=== PATIENT | female | born 1970 | race Two or more races ===

== ENCOUNTER 2021-09-24 14:45 | Outpatient (REF) | payer OTHER, SELFPAY ==
--- NOTE | ~2021-09-24 | XR_ITS ---
EXAMINATION: XR CHEST CLINICAL INFORMATION: Asthma. COMPARISON: None TECHNIQUE: 2 views of the chest were obtained. FINDINGS: No significant abnormality is noted involving the heart, lungs, mediastinum, bony thorax or soft tissues. XR/XR chest 2V IMPRESSION: Unremarkable chest examination.
== END 2021-09-24 14:46 | disposition home or self-care (01) ==
LOC: HO.XRAY 14:45
PROVIDERS: PCP Nurse Practitioner Family; Visit Provider Hospitalist
DX: J45.40 Moderate persistent asthma, uncomplicated (principal); G47.33 Obstructive sleep apnea (adult) (pediatric); M54.9 Dorsalgia, unspecified; J30.9 Allergic rhinitis, unspecified; R06.00 Dyspnea, unspecified; Z99.89 Dependence on other enabling machines and devices
CPT/HCPCS: 71046

== ENCOUNTER 2021-11-12 15:08 | Outpatient (REF) | payer OTHER, SELFPAY ==
--- NOTE | 2021-11-12 16:43 | PFT_ITS ---
INDICATION: Asthma. SPIROMETRY: FEV1 to FVC of 84% with an FEV1 of 2.23 L, which is 74% predicted. FVC of 2.27 L, which is 72% predicted. No significant response to bronchodilators noted. Maximum voluntary ventilation 85% predicted. LUNG VOLUMES: Total lung capacity 86% predicted with an expiratory reserve volume of 9% predicted. DIFFUSION CAPACITY: DLCO 81% predicted. COMPARISONS: None. INTERPRETATION: No obstructive, nor restrictive ventilatory defects identified. No significant response to bronchodilators noted. Normal maximum voluntary ventilation. Lung volumes are normal except for decrease in the expiratory reserve volume secondary to elevated BMI. Diffusion capacity is within normal limits. Clinical correlation warranted. MD CHARLA Meza/MODSelam / [id number]
== END 2021-11-12 15:09 | disposition home or self-care (01) ==
LOC: HO.RESP 15:08
PROVIDERS: PCP Nurse Practitioner Family; Visit Provider Hospitalist
DX: J45.40 Moderate persistent asthma, uncomplicated (principal); R06.00 Dyspnea, unspecified
CPT/HCPCS: 94060; 94727; 94729

== ENCOUNTER → 2021-11-16 15:03 | Outpatient (BNVA) | payer OTHER, SELFPAY | PROVIDERS: PCP Nurse Practitioner Family; Visit Provider Hospitalist | DX: J45.909 Unspecified asthma, uncomplicated (principal); G47.33 Obstructive sleep apnea (adult) (pediatric); Z99.89 Dependence on other enabling machines and devices ==

== ENCOUNTER → 2022-04-02 13:23 | Outpatient (BNVA) | payer OTHER, SELFPAY | PROVIDERS: PCP Nurse Practitioner Family; Visit Provider Hospitalist | DX: J45.40 Moderate persistent asthma, uncomplicated (principal); J30.9 Allergic rhinitis, unspecified; R06.00 Dyspnea, unspecified; G47.33 Obstructive sleep apnea (adult) (pediatric); Z79.899 Other long term (current) drug therapy; Z99.89 Dependence on other enabling machines and devices | CPT/HCPCS: 99212 ==

== ENCOUNTER → 2022-11-07 13:15 | Outpatient (BNVA) | payer OTHER, SELFPAY | PROVIDERS: PCP Nurse Practitioner Family; Visit Provider Hospitalist | DX: J45.40 Moderate persistent asthma, uncomplicated (principal); R06.00 Dyspnea, unspecified; G47.33 Obstructive sleep apnea (adult) (pediatric); Z99.89 Dependence on other enabling machines and devices | CPT/HCPCS: 99212 ==

== ENCOUNTER 2023-05-09 13:58 | Outpatient (AMB) | payer OTHER, SELFPAY ==
[2023-05-09 14:03] VITALS: BP 128/70; PULSE 88; O2SAT 98; BMI 41.2
--- NOTE | 2023-05-09 14:03 | A.OFFVIS_ITS ---
Intake Vital Signs 05/09/23 14:03 Height 5 ft 4 in Weight 240 lb BMI 41.2 BP 128/70 Blood Pressure Location Lt brachial Position Sitting Pulse 88 Pulse Source Pulse Oximeter Pulse Oximetry (%) 98 Oxygen Delivery Method Room Air Intake Visit Reasons: Asthma Campus Police Officer Required: No Allergies No Known Allergies Allergy (Verified 05/09/23 14:06) HPI HPI Comments History of Present Illness Details The patient is a 52-year-old woman with a known history of asthma in addition to obstructive sleep apnea. The patient has been having worse breath. She has a hard time exercising because of the shortness of breath and chest tightness. She has been using Flovent HFA with some relief. In addition to that she does have a rescue inhaler. The patient also has been complaining of some back discomfort. It is not pleuritic in nature. she feels that is deeper that is not musculoskeletal. Will have her undergo a chest x-ray to make sure that we can better assess the area. If the patient continues with discomfort then additional evaluations will be warranted. In the meantime the patient also has sleep apnea. CPAP therapy has been affecting beneficial. Will have her bring her in to be able to adjusted further. She still has lower extremity edema. Will have to make sure that she is getting proper PAP therapy to minimize any issues with lower extremity edema. 11/16/2021 the patient is here for a pulmonary follow-up visit. Overall she is doing better from a respiratory status. she does complaint of dyspnea on exertion but better. She has not had to use her rescue inhaler. We did look at the pulmonary function studies which demonstrated no evidence of any obstructive nor restrictive ventilatory defects although her expiratory reserve volume is significantly low at 9% predicted. Explained to her that does because of her body habitus and when she loses weight her lung capacity will improve. She was initially considering bariatric surgery. I did recommend she consider medical weight loss. I did give her information about that. The patient is motivated and I do believe she would do better with less invasive approach. she also brought her CPAP. We did download the data. Appears that is working well although she is waking up after few hours. It is likely that the pressures are increasing significantly. Therefore I brought down her maximum pressure to a re asonable therapeutic range. The patient will try the current APAP 8-12 and see how effective this is. She can always bring it to the next visit so we can continue adjusting it. 04/02/2022 the patient is here for a pulmonary follow-up visit. Overall she is doing better from a respiratory status. She is using her Symbicort and also has of singular. She has signed had to use her rescue inhaler. Her dyspnea is better at this time. The patient has been using her CPAP. The CPAP therapy has been affecting beneficial. She is using a nasal mask. I did download her data. Her AHI is near 0. Therefore the therapy has been very effective in beneficial. Although she does not like the nasal mask because of marked separate face. She is looking to considering a nasal pillow mask. I do not h ave 1 available. Therefore I did provide her with N30i cradle. this mass may not necessarily come to to her nose but she will tried at this time. If is not effective for her she can call me and I will request a P 10. In meantime she is having difficulties with her [employer] company. We did reach out to them so they can look into the issue. The patient has been using her CPAP more than 4 hours a night. Actually averaging little bit more than 6 hours. And therefore she has been compliant with the therapy. 11/07/2022 the patient is here for a pulm onary follow-up visit. The patient overall is doing well. She still struggling with CPAP. Her mask is been bothering her. She also had to stopped using it because of a procedure and then she has not been using it regularly. She has not been getting supplies from the [employer]. I will reach out to opted to see if she still active with the [employer] company. If not will going to have to redo her sleep study. The patient was provided with a new mask, P 10 and she did tolerated well. She is going to start using her CPAP now with the new mask with hopes that she can tolerated better. In regards of her asthma she has been doing well. She has not required a rescue inhaler. She does having increasing lower extremity edema. Explained to her that it may be related to the fact that she is not using her CPAP I did give her a prescription for prescription compression stockings and she will be careful with her diet to maintain a low-sodium diet. The next visit she will bring her CPAP in. Hopefully I can hear from the [employer] to see if we need to order another sleep study. The patient does benefit from using her CPAP and now she is getting more situated with it. 05/09/2023 the patient is here for pulduran carroll follow-up visit. The patient is still struggling with CPAP. She is not getting any supplies and she is very concerned. I did reach out to the [employer]. Not sure if she is still active. They will get back to us. The meantime will going to repeat her sleep study to addressed her degree of sleep apnea. The patient does have significant daytime drowsiness with an elevated [place] score of 11/24. She did very well on CPAP before. The patient needs to go back on therapy. From the asthma standpoint she is using her respiratory therapy as prescribed. Overall she is doing well. She still has all extremity edema. She is using the compression stockings. She needs to continue low-sodium diet. [facility] Medical History (Updated 05/09/23 @ 20:56 by Bud Talbot MD) Lower extremity edema Dyspnea Dextroscoliosis of thoracic spine Back pain Lumbar spondylosis Vitamin D deficiency Obstructive sleep apnea on CPAP Obesity GERD (gastroesophageal reflux disease) Allergic rhinitis Asthma Family History (Updated 09/24/21 @ 14:36 by Cherry Tinoco PA-C) Mother Lung cancer Hypertension Social History (Updated 09/24/21 @ 14:55 by CONNOR Joshi) Patient Tobacco Use Status: Never used Tobacco Review of Systems Const Reports daytime sleepiness, Reports snoring, Reports stops breathing during sleep and Reports weight gain Eyes Denies change in vision ENT Denies change in voice, Reports nasal congestion and Reports nasal discharge Card Denies chest pain, Reports leg edema and Reports dyspnea on exertion Resp Reports cough, Reports dyspnea on exertion, Reports snoring and Denies wheezing GI Reports no additional complaints Musc Reports back pain Skin/Breast Denies rash Neuro Reports no additional complaints Aller/Immun Denies wheezing Physical Exam Vital Signs: Last Vital Signs Pulse 88 05/09/23 14:03 BP 128/70 05/09/23 14:03 Pulse Ox 98 05/09/23 14:03 Oxygen Delivery Method Room Air 05/09/23 14:03 BMI result Body Mass Index 41.2 Const General: alert Neck Neck: Yes normal visual inspection, Yes full ROM and Yes no lymphadenopathy Chest Chest palpation & inspection: normal inspection of the chest Resp Effort & Inspection: normal respiratory effort Auscultation: no wheezes and diminished lung sounds Cardio Rate: regular rate Rhythm: regular rhythm Heart sounds: S1 normal heart sound present and S2 normal heart sound present GI Palpation (GI): Soft to palpation and nontender Auscultation: normal bowel sounds Skin General skin exam: rashes and/or lesions noted Assessment & Plan Assessment & Plan (1) Asthma: Code(s): J45.909 - Unspecified asthma, uncomplicated Qualifiers: Asthma complication type: uncomplicated Asthma persistence: persistent Asthma severity: moderate Qualified Code(s): J45.40 - Moderate persistent asthma, uncomplicated (2) Obstructive sleep apnea on CPAP: Comment: (Moderate ASHLEY - AHI 15.8 on [facility] Sleep test 05/10/2020 ) Code(s): G47.33 - Obstructive sleep apnea (adult) (pediatric); Z99.89 - Dependence on other enabling machines and devices (3) Allergic rhinitis: Code(s): J30.9 - Allergic rhinitis, unspecified Qualifiers: Allergic rhinitis trigger: unspecified Allergic rhinitis seasonality: unspecified Qualified Code(s): J30.9 - Allergic rhinitis, unspecified (4) Dyspnea: Code(s): R06.00 - Dyspnea, unspecified Qualifiers: Dyspnea type: dyspnea on exertion Qualified Code(s): R06.00 - Dyspnea, unspecified Plan continue Symbicort continue Singulair Home PSG. Needs to restart PAP therapy medical weight loss program comression stockings F/U 6 months, Orders: Orders RT home sleep study Today G47.33 - Obstructive sleep apnea (adult) (pediatric), Z99.89 - Dependence on other enabling machines and devices Coding Level of Care Code Est Pt Level 4 (87464) Diagnoses Moderate persistent asthma without complication J45.40 Asthma complication type: uncomplicated Asthma persistence: persistent Asthma severity: moderate Obstructive sleep apnea on CPAP G47.33; Z99.89 Allergic rhinitis, unspecified seasonality, unspecified trigger J30.9 Allergic rhinitis trigger: unspecified Allergic rhinitis seasonality: unspecified Dyspnea on exertion R06.00 Dyspnea type: dyspnea on exertion Time Spent (min) 16
== END 2023-05-09 14:27 | disposition home or self-care (01) ==
PROVIDERS: PCP Nurse Practitioner Family; Visit Provider Hospitalist
DX: J45.40 Moderate persistent asthma, uncomplicated (principal); G47.33 Obstructive sleep apnea (adult) (pediatric); Z99.89 Dependence on other enabling machines and devices; J30.9 Allergic rhinitis, unspecified; R06.00 Dyspnea, unspecified
CPT/HCPCS: 99214

== ENCOUNTER → 2023-05-09 13:58 | Outpatient (BNVA) | payer OTHER, SELFPAY | PROVIDERS: PCP Nurse Practitioner Family; Visit Provider Hospitalist | DX: J45.40 Moderate persistent asthma, uncomplicated (principal); J30.9 Allergic rhinitis, unspecified; G47.33 Obstructive sleep apnea (adult) (pediatric); R06.00 Dyspnea, unspecified; Z99.89 Dependence on other enabling machines and devices | CPT/HCPCS: 99212 ==

== ENCOUNTER 2023-11-07 14:34 | Outpatient (AMB) | payer OTHER, SELFPAY ==
[2023-11-07 14:37] VITALS: PULSE 87; O2SAT 98; BMI 40.9
--- NOTE | 2023-11-07 14:37 | A.OFFVIS_ITS ---
Vital Signs 11/07/23 14:37 Height 5 ft 4 in Weight 238 lb 1.588 oz BMI 40.9 Pulse 87 Pulse Source Pulse Oximeter Pulse Oximetry (%) 98 Oxygen Delivery Method Room Air Intake Visit Reasons: Asthma Marketing Database Coordinator Required: No Allergies No Known Allergies Allergy (Verified 11/07/23 14:38) HPI Comments Details: The patient is a 52-year-old woman with a known history of asthma in addition to obstructive sleep apnea. The patient has been having worse breath. She has a hard time exercising because of the shortness of breath and chest tightness. She has been using Flovent HFA with some relief. In addition to that she does have a rescue inhaler. The patient also has been complaining of some back discomfort. It is not pleuritic in nature. she feels that is deeper that is n ot musculoskeletal. Will have her undergo a chest x-ray to make sure that we can better assess the area. If the patient continues with discomfort then additional evaluations will be warranted. In the meantime the patient also has sleep apnea. CPAP therapy has been affecting beneficial. Will have her bring her in to be able to adjusted further. She still has lower extremity edema. Will have to make sure that she is getting proper PAP therapy to minimize any issues with lower extremity edema. 11/16/2021 the patient is here for a pulmonary follow-up visit. Overall she is doing better from a respiratory status. she does complaint of dyspnea on exertion but better. She has not had to use her rescue inhaler. We did look at the pulmonary function studies which demonstrated no evidence of any obstructive nor restrictive ventilatory defects although her expiratory reserve volume is significantly low at 9% predicted. Explained to her that does because of her body habitus and when she loses weight her lung capacity will improve. She was initially considering bariatric surgery. I did recommend she consider medical weight loss. I did give her information about that. The patient is motivated and I do believe she would do better with less invasive approach. she also brought her CPAP. We did download the data. Appears that is working well although she is waking up after few hours. It is likely that the pressures are increasing significantly. Therefore I brought down her maximum pressure to a reasonable therapeutic range. The patient will try the current APAP 8-12 and see how effective this is. She can always bring it to the next visit so we can continue adjusting it. 04/02/2022 the patient is here for a pulmonary follow-up visit. Overall she is doing better from a respiratory status. She is using her Symbicort and also has of singular. She has signed had to use her rescue inhaler. Her dyspnea is better at this time. The patient has been using her CPAP. The CPAP therapy has been affecting beneficial. She is using a nasal mask. I did download her data. Her AHI is near 0. Therefore the therapy has been very effective in beneficial. Although she does not like the nasal mask because of marked separate face. She is looking to considering a nasal pillow mask. I do not have 1 available. Therefore I did provide her with N30i cradle. this mass may not necessarily come to to her nose but she will tried at this time. If is not effective for her she can call me and I will request a P 10. In meantime she is having difficulties with her [employer] company. We did reach out to them so they can look into the issue. The patient has been using her CPAP more than 4 hours a night. Actually averaging little bit more than 6 hours. And therefore she has been compliant with the therapy. 11/07/2022 the patient is here for a pulmonary follow-up visit. The patient overall is doing well. She still struggling with CPAP. Her mask is been bothering her. She also had to stopped using it because of a procedure and then she has not been using it regularly. She has not been getting supplies from the [employer]. I will reach out to opted to see if she still active with the [employer] company. If not will going to have to redo her sleep study. The patient was provided with a new mask, P 10 and she did tolerated well. She is going to start using her CPAP now with the new mask with hopes that she can tolerated better. In regards of her asthma she has been doing well. She has not required a rescue inhaler. She does having increasing lower extremity edema. Explained to her that it may be related to the fact that she is not using her CPAP I did give her a prescription for prescription compression stockings and she will be careful with her diet to maintain a low-sodium diet. The next visit she will bring her CPAP in. Hopefully I can hear from the [employer] to see if we need to order another sleep study. The patient does benefit from using her CPAP and now she is getting more situated with it. 11/07/2023 the patient is here for pulmonary follow-up visit. The patient is still struggling with CPAP. She is not getting any supplies and she is very concerned. I did reach out to the [employer]. Not sure if she is still active. They will get back to us. The meantime will going buy some supplies and start using her CPAP. The patient does have significant daytime drowsiness with an elevated [place] score of 11/24. She did very well on CPAP before. The patient needs to go back on therapy. From the asthma standpoint she is using her respiratory therapy as prescribed. Overall she is doing well. She still has all extremity edema. She is using the compression stockings. She needs to continue low-sodium diet. She is complaining of back oain, which appears to be reproducible, [place] [facility] Medical History (Updated 05/09/23 @ 20:56 by Bud Talbot MD) Lower extremity edema Dyspnea Dextroscoliosis of thoracic spine Back pain Lumbar spondylosis Vitamin D deficiency Obstructive sleep apnea on CPAP Obesity GERD (gastroesophageal reflux disease) Allergic rhinitis Asthma Family History (Updated 09/24/21 @ 14:36 by Cherry Tinoco PA-C) Mother Lung cancer Hypertension Social History (Updated 09/24/21 @ 14:55 by CONNOR Joshi) Patient Tobacco Use Status: Never used Tobacco Review of Systems Const Reports daytime sleepiness, Reports snoring, Reports stops breathing during sleep and Reports weight gain Eyes Denies change in vision ENT Denies change in voice, Reports nasal congestion and Reports nasal discharge Card Denies chest pain, Reports leg edema and Reports dyspnea on exertion Resp Reports cough, Reports dyspnea on exertion, Reports snoring and Denies wheezing GI Reports no additional complaints Musc Reports back pain Skin/Breast Denies rash Neuro Reports no additional complaints Aller/Immun Denies wheezing Physical Exam Vital Signs: Last Vital Signs Pulse 87 11/07/23 14:37 Pulse Ox 98 11/07/23 14:37 Oxygen Delivery Method Room Air 11/07/23 14:37 BMI result Body Mass Index 40.9 Const General: alert Neck Neck: Yes normal visual inspection, Yes full ROM and Yes no lymphadenopathy Chest Chest palpation & inspection: normal inspection of the chest Resp Effort & Inspection: normal respiratory effort Auscultation: no wheezes and diminished lung sounds Cardio Rate: regular rate Rhythm: regular rhythm Heart sounds: S1 normal heart sound present and S2 normal heart sound present GI Palpation (GI): Soft to palpation and nontender Auscultation: normal bowel sounds Back/Spine/Pelvis Back: back tenderness Skin General skin exam: rashes and/or lesions noted Assessment & Plan Assessment & Plan (1) Asthma: Code(s): J45.909 - Unspecified asthma, uncomplicated Category: Medical Qualifiers: Asthma complication type: uncomplicated Asthma persistence: persistent Asthma severity: moderate Qualified Code(s): J45.40 - Moderate persistent asthma, uncomplicated (2) Obstructive sleep apnea on CPAP: Comment: (Moderate ASHLEY - AHI 15.8 on [facility] Sleep test 05/10/2020 ) Code(s): G47.33 - Obstructive sleep apnea (adult) (pediatric); Z99.89 - Dependence on other enabling machines and devices Category: Medical (3) Allergic rhinitis: Code(s): J30.9 - Allergic rhinitis, unspecified Category: Medical Qualifiers: Allergic rhinitis seasonality: unspecified Allergic rhinitis trigger: unspecified Qualified Code(s): J30.9 - Allergic rhinitis, unspecified (4) Dyspnea: Code(s): R06.00 - Dyspnea, unspecified Category: Medical Qualifiers: Dyspnea type: dyspnea on exertion Qualified Code(s): R06.00 - Dyspnea, unspecified Plan continue Symbicort continue Singulair Needs to restart PAP therapy, reached out to her DME regarding supplies medical weight loss program comression stockings F/U 6 months, Medications: Refilled Symbicort 160-4.5 mcg/actuation (budesonide-formoterol) 2 puffs inhalation BID 10.2 grams 11RF 30 days NS J44.9 - Chronic obstructive pulmonary disease, unspecified Coding Level of Care Code Est Pt Level 4 (72336) Diagnoses Moderate persistent asthma without complication J45.40 Asthma complication type: uncomplicated Asthma persistence: persistent Asthma severity: moderate Obstructive sleep apnea on CPAP G47.33; Z99.89 Allergic rhinitis, unspecified seasonality, unspecified trigger J30.9 Allergic rhinitis seasonality: unspecified Allergic rhinitis trigger: unspecified Dyspnea on exertion R06.00 Dyspnea type: dyspnea on exertion Time Spent (min) 16
== END 2023-11-07 15:00 | disposition home or self-care (01) ==
PROVIDERS: PCP Nurse Practitioner Family; Visit Provider Hospitalist
DX: J45.40 Moderate persistent asthma, uncomplicated (principal); G47.33 Obstructive sleep apnea (adult) (pediatric); Z99.89 Dependence on other enabling machines and devices; J30.9 Allergic rhinitis, unspecified; R06.00 Dyspnea, unspecified
CPT/HCPCS: 99214

== ENCOUNTER → 2023-11-07 14:34 | Outpatient (BNVA) | payer OTHER, SELFPAY | PROVIDERS: PCP Nurse Practitioner Family; Visit Provider Hospitalist | DX: J45.40 Moderate persistent asthma, uncomplicated (principal); J30.9 Allergic rhinitis, unspecified; G47.33 Obstructive sleep apnea (adult) (pediatric); R06.00 Dyspnea, unspecified; Z79.899 Other long term (current) drug therapy; Z99.89 Dependence on other enabling machines and devices | CPT/HCPCS: 99212 ==

== ENCOUNTER 2025-04-12 15:51 | Outpatient (AMB) | payer OTHER, SELFPAY ==
--- OUTSIDE RECORDS SUMMARY | 2024-12-14 10:30 | XMS_ITS ---
Author Organization [facility] [address] Address [address] [place] [address] Care Team Providers Care Loading Dock Hand Name Role Phone ARSALAN GUSTAFSON Unavailable [phone] Lesly Varner Unavailable [phone] Encounters Encounter Location Date Provider Diagnosis [facility] [address] [address] 12/14/2024 Lesly Varner Plan Of Treatment No Information Progress Notes * ROCCO VARGASDOB:1970 (54 yo F)Acc No.[id number]:12/14/2024 Patient: ROCCO SOTO Provider: Silvino Varner PA-C :1970 A ge:54 Y S ex:Female Date:12/14/2024 Address:[address] [place], [place] [id number] Subjective: * Chief Complaints: * * Medical History: Objective: * Vitals: Assessment: Plan: * Treatment: * Images: Billing Information: * Visit Code: * Procedure Codes: * Electronic signature of Lesly Varner PA-C on 04/12/2025 at 06:23 PM EDT Sign off status: Pending * Provider: Silvino Varner PA-C Date: 0 12/14/2024 Generated for Augusta byrne/Ike/Simon on: 1 06:23 PM EDT
--- OUTSIDE RECORDS SUMMARY | 2025-02-02 10:45 | XMS_ITS ---
Author Organization [facility] [address] Address [address] [place] [address] Care Team Providers Care Manager Behavioral Name Role Phone ARSALAN GUSTAFSON Unavailable [phone] Lesly Varner Unavailable [phone] Encounters Encounter Location Date Provider Diagnosis [facility] [address] [address] 02/02/2025 Lesly Varner Plan Of Treatment No Information Progress Notes * ROCCO VARGASDOB:1970 (54 yo F)Acc No.[id number]:02/02/2025 Patient: ROCCO SOTO Provider: Silvino Varner PA-C :1970 A ge:54 Y S ex:Female Date:02/02/2025 Address:[address] [place], [place] [phone] Subjective: * Chief Complaints: * * Medical History: Objective: * Vitals: Assessment: Plan: * Treatment: * Images: Billing Information: * Visit Code: * Procedure Codes: * Electronic signature of Lesly Varner PA-C on 04/12/2025 at 06:23 PM EDT Sign off status: Pending * Provider: Silvino Varner PA-C Date: 0 02/02/2025 Generated for Augusta byrne/Ike/Simon on: 06:23 PM EDT
--- OUTSIDE RECORDS SUMMARY | 2025-04-06 10:30 | XMS_ITS ---
Author Organization [facility] [address] Address [address] [place] [address] Care Team Providers Care Full Time Staff Interpreter Name Role Phone JANAY ARSALAN Unavailable [phone] Lesly Varner Unavailable [phone] Encounters Encounter Location Date Provider Diagnosis [facility] [address] [address] 04/06/2025 Lesly Varner Plan Of Treatment No Information Progress Notes * ROCCO VARGASDOB:1970 (54 yo F)Acc No.[id number]:04/06/2025 Patient: ROCCO SOTO Provider: Silvino Varner PA-C :1970 A ge:54 Y S ex:Female Date:04/06/2025 Address:[address] [place], [place] [phone] Subjective: * Chief Complaints: * * Medical History: Objective: * Vitals: Assessment: Plan: * Treatment: * Images: Billing Information: * Visit Code: * Procedure Codes: * Electronic signature of Lesly Varner PA-C on 04/12/2025 at 06:23 PM EDT Sign off status: Pending * Provider: Silvino Varner PA-C Date: Generated for Augusta byrne/Ike/Simon on: 06:23 PM EDT
--- NOTE | 2025-04-12 15:53 | MHC.OFFVIS ---
Vital Signs 04/12/25 15:54 Height 5 ft 4 in Weight 243 lb 9.773 oz BMI 41.8 BP 134/104 H Blood Pressure Location Lt brachial Position Sitting Pulse 115 H Pulse Source Pulse Oximeter Pulse Oximetry (%) 96 Oxygen Delivery Method Room Air Intake Visit Reasons: asthma Accompanied by: Self / Same As Patient Allergies No Known Allergies Allergy (Verified 04/12/25 15:56) HPI Comments Details: The patient is a 54-year-old woman with a known history of asthma in addition to obstructive sleep apnea. The patient has been having worse breath. She has a hard time exercising because of the shortness of breath and chest tightness. She has been using Flovent HFA with some relief. In addition to that she does have a rescue inhaler. The patient also has been complaining of some back discomfort. It is not pleuritic in nature. she feels that is deeper that is not musculoskeletal. Will have her undergo a chest x-ray to make sure that we can better assess the area. If the patient continues with discomfort then additional evaluations will be warranted. In the meantime the patient also has sleep apnea. CPAP therapy has been affecting beneficial. Will have her bring her in to be able to adjusted further. She still has lower extremity edema. Will have to make sure that she is getting proper PAP therapy to minimize any issues with lower extremity edema. 11/16/2021 the patient is here for a pulmonary follow-up visit. Overall she is doing better from a respiratory status. she does complaint of dyspnea on exertion but better. She has not had to use her rescue inhaler. We did look at the pulmonary function studies which demonstrated no evidence of any obstructive nor restrictive ventilatory defects although her expiratory reserve volume is significantly low at 9% predicted. Explained to her that does because of her body habitus and when she loses weight her lung capacity will improve. She was initially considering bariatric surgery. I did recommend she consider medical weight loss. I did give her information about that. The patient is motivated and I do believe she would do better with less invasive approach. she also brought her CPAP. We did download the data. Appears that is working well although she is waking up after few hours. It is likely that the pressures are increasing significantly. Therefore I brought down her maximum pressure to a reasonable therapeutic range. The patient will try the current APAP 8-12 and see how effective this is. She can always bring it to the next visit so we can continue adjusting it. 04/02/2022 the patient is here for a pulmonary follow-up visit. Overall she is doing better from a respiratory status. She is using her Symbicort and also has of singular. She has signed had to use her rescue inhaler. Her dyspnea is better at this time. The patient has been using her CPAP. The CPAP therapy has been affecting beneficial. She is using a nasal mask. I did download her data. Her AHI is near 0. Therefore the therapy has been very effective in beneficial. Although she does not like the nasal mask because of marked separate face. She is looking to considering a nasal pillow mask. I do not have 1 available. Therefore I did provide her with N30i cradle. this mass may not necessarily come to to her nose but she will tried at this time. If is not effective for her she can call me and I will request a P 10. In meantime she is having difficulties with her [employer] company. We did reach out to them so they can look into the issue. The patient has been using her CPAP more than 4 hours a night. Actually averaging little bit more than 6 hours. And therefore she has been compliant with the therapy. 11/07/2022 the patient is here for a pulmonary follow-up visit. The patient overall is doing well. She still struggling with CPAP. Her mask is been bothering her. She also had to stopped using it because of a procedure and then she has not been using it regularly. She has not been getting supplies from the [employer]. I will reach out to opted to see if she still active with the [employer] company. If not will going to have to redo her sleep study. The patient was provided with a new mask, P 10 and she did tolerated well. She is going to start using her CPAP now with the new mask with hopes that she can tolerated better. In regards of her asthma she has been doing well. She has not required a rescue inhaler. She does having increasing lower extremity edema. Explained to her that it may be related to the fact that she is not using her CPAP I did give her a prescription for prescription compression stockings and she will be careful with her diet to maintain a low-sodium diet. The next visit she will bring her CPAP in. Hopefully I can hear from the [employer] to see if we need to order another sleep study. The patient does benefit from using her CPAP and now she is getting more situated with it. 11/07/2023 the patient is here for pulmonary follow-up visit. The patient is still struggling with CPAP. She is not getting any supplies and she is very concerned. I did reach out to the [employer] company. Not sure if she is still active. They will get back to us. The meantime will going buy some supplies and start using her CPAP. The patient does have significant daytime drowsiness with an elevated Palmer score of 11/24. She did very well on CPAP before. The patient needs to go back on therapy. From the asthma standpoint she is using her respiratory therapy as prescribed. Overall she is doing well. She still has all extremity edema. She is using the compression stockings. She needs to continue low-sodium diet. She is complaining of back oain, which appears to be reproducible, MS 04/12/2025 the patient is here for pulmonary follow-up visit. Overall the patient has been doing well. She had been tolerating her CPAP. CPAP therapy has been affecting beneficial. She does tolerate it for more than 4 hours. She is using a nasal mask. She is complaining of a dry mouth. She understands that she needs to get a chinstrap or CPAP mouth tape to minute air leakage through her mouth. In the meantime also increase the humidity from 3-4. She can always increase it further but she has to make sure that she does not get any water condensation in the tubing. She will continue getting supplies through her [employer] company, [employer]. She is complaining of back pain. She feels like a knot sensation next to the scapula on the right side. I did feel it in his tender to the touch. It does feel like musculoskeletal like a knot that is in tender in that area. She had been lifting ways it may be related to that. She will try some Motrin. Will have her get an x-ray. But most likely she will have to follow up with primary care physiatry to further address that issue. From an asthma standpoint the patient has been doing well she has been tolerating inhaler well she has not had any issues. Today when she came in she came in little bit rash and her blood pressure was elevated with a diastolic pressure 108. The patient did have a repeat blood pressure and I did check it and her diastolic pressure was still significantly elevated. She does take phentermine for her weight loss program. At this point I do believe that she may be having adverse reactions to the medication and she should hold it until she speaks to her primary care doctor. In the meantime because of her sleep apnea she is a candidate for GLP 1 inhibitors so she will be a better option for her if she can get that through her primary care doctor. We do not offer GLP wants to our office. I did put a message out to the primary care doctor to make sure that they are aware that her blood pressure is significantly elevated. The patient follow-up in 6 months if she has any issues prior to this she can always call for an earlier assessment. [facility] Medical History (Updated 04/12/25 @ 21:34 by Bud Talbot MD) Hypertension Lower extremity edema Dyspnea Dextroscoliosis of thoracic spine Back pain Lumbar spondylosis Vitamin D deficiency Obstructive sleep apnea on CPAP Obesity GERD (gastroesophageal reflux disease) Allergic rhinitis Asthma Family History (Updated 09/24/21 @ 14:36 by Cherry Tinoco PA-C) Mother Lung cancer Hypertension Social History Patient Tobacco Use Status: Never used Tobacco Review of Systems Const Reports daytime sleepiness and Reports weight gain Eyes Reports no additional complaints ENT Denies change in voice, Reports dry mouth, Reports nasal congestion, Reports nasal discharge and Reports neck pain Card Denies chest pain, Reports leg edema and Reports dyspnea on exertion Resp Reports cough, Reports dyspnea on exertion and Denies wheezing GI Reports no additional complaints Musc Reports back pain, Reports myalgias and Reports neck pain Skin/Breast Denies rash Neuro Reports no additional complaints Aller/Immun Denies wheezing Physical Exam Vital Signs: Last Vital Signs Pulse 115 H 04/12/25 15:54 BP 134/104 H 04/12/25 15:54 Pulse Ox 96 04/12/25 15:54 Oxygen Delivery Method Room Air 04/12/25 15:54 BMI result Body Mass Index 41.8 Const General: alert Neck Neck: Yes normal visual inspection, Yes full ROM and Yes no lymphadenopathy Chest Chest palpation & inspection: normal inspection of the chest Resp Effort & Inspection: normal respiratory effort Auscultation: no wheezes and diminished lung sounds Cardio Rate: regular rate Rhythm: regular rhythm Heart sounds: S1 normal heart sound present and S2 normal heart sound present GI Palpation (GI): Soft to palpation and nontender Auscultation: normal bowel sounds Back/Spine/Pelvis Back: back tenderness (adjacent to the right scapula with muscle knot with tenderness on pressing) Skin General skin exam: rashes and/or lesions noted Assessment & Plan Assessment & Plan (1) Asthma: Code(s): J45.909 - Unspecified asthma, uncomplicated Category: Medical Qualifiers: Asthma severity: moderate Asthma persistence: persistent Asthma complication type: uncomplicated Qualified Code(s): J45.40 - Moderate persistent asthma, uncomplicated (2) Obstructive sleep apnea on CPAP: Comment: (Moderate ASHLEY - AHI 15.8 on [facility] Sleep test 05/10/2020 ) Code(s): G47.33 - Obstructive sleep apnea (adult) (pediatric); Z99.89 - Dependence on other enabling machines and devices Category: Medical (3) Allergic rhinitis: Code(s): J30.9 - Allergic rhinitis, unspecified Category: Medical Qualifiers: Allergic rhinitis trigger: unspecified Allergic rhinitis seasonality: unspecified Qualified Code(s): J30.9 - Allergic rhinitis, unspecified (4) Dyspnea: Code(s): R06.00 - Dyspnea, unspecified Category: Medical Qualifiers: Dyspnea type: dyspnea on exertion Qualified Code(s): R06.00 - Dyspnea, unspecified (5) Back pain: Comment: MS pain Code(s): M54.9 - Dorsalgia, unspecified Category: Medical Qualifiers: Back pain location: thoracic back pain Chronicity: unspecified Back pain laterality: unspecified Qualified Code(s): M54.6 - Pain in thoracic spine (6) Hypertension: Code(s): I10 - Essential (primary) hypertension Category: Medical Qualifiers: Hypertension type: unspecified Qualified Code(s): I10 - Essential (primary) hypertension Plan continue Symbicort continue Singulair PAP therapy, (APRIA) nasal mask, needs chin strap or mouth tape F/U with PCP re: HTN ?medication related. May benefit from GLP1 CXR F/U with PCP or physiatry re: back pain F/U 6-8 months, Orders: Orders XR chest 2V Today M54.9 - Dorsalgia, unspecified Coding Level of Care Code Est Pt Level 4 (24379) Complex EM visit Add On G2211 Diagnoses Moderate persistent asthma without complication J45.40 Asthma severity: moderate Asthma persistence: persistent Asthma complication type: uncomplicated Obstructive sleep apnea on CPAP G47.33; Z99.89 Allergic rhinitis, unspecified seasonality, unspecified trigger J30.9 Allergic rhinitis trigger: unspecified Allergic rhinitis seasonality: unspecified Dyspnea on exertion R06.00 Dyspnea type: dyspnea on exertion Thoracic back pain, unspecified back pain laterality, unspecified chronicity M54.6 Back pain location: thoracic back pain Chronicity: unspecified Back pain laterality: unspecified Hypertension, unspecified type I10 Hypertension type: unspecified Time Spent (min) 20
[2025-04-12 15:54] VITALS: BP 134/104; PULSE 115; O2SAT 96; BMI 41.8
--- OUTSIDE RECORDS SUMMARY | 2025-04-12 18:24 | XMS_ITS | Patient Health Record ---
[facility] [address] Address [address] [place] [address] Care Team Providers Care Production Lead Name Role Phone ARSALAN GUSTAFSON Unavailable [phone] Lesly Varner Unavailable [phone] Allergies No Known Allergies Reason For Referral No Information Medications Medication SIG (Take, Route, Frequency, Duration) Notes Start Date End Date Status Wegovy 2.4 MG/0.75ML 0.75 mL Subcutaneous once weekly; Duration: 30 days Not-Taking Excedrin Extra Strength 250-250-65 MG 2 tablets Orally Once a day Active Symbicort 160-4.5 MCG/ACT INHALE 2 PUFFS BY MOUTH TWICE DAILY Inhalation; Duration: 30 Days Active Zepbound 10 MG/0.5ML 0.5 mL Subcutaneous once weekly; Duration: 30 days replaces LISET figueroa has been approved Active One A Day Women 50 Plus 11/25/2023 Active hydroCHLOROthiazide 12.5 MG Oral; Duration: 90 Days Active Fluticasone Propionate 50 MCG/ACT SHAKE LIQUID AND USE 1 SPRAY IN EACH NOSTRIL TWICE DAILY NEEDED DURING ALLERGY SEASON Nasal; Duration: 90 Days Active Loratadine 10 MG TAKE 1 TABLET BY MOUTH DAILY Oral; Duration: 30 Days Active Social History Tobacco Use: Social History Observation Description Date Details (start date - stop date) Never Smoker NA - NA Tobacco Use/Smoking Question Answer Notes Are you a nonsmoker Alcohol Screen (Audit-C) Question Answer Notes Did you have a drink containing alcohol in the p ast year? No Points 0 Interpretation Negative Problems Problem Type SNOMED Code ICD Code Onset Dates Problem Status W/U Status Risk Notes Problem Morbid obesity (432679176) Morbid obesity (E66.01) Active confirmed Problem Body mass index 40+ - morbidly obese (633194134) BMI 40.0-44.9, adult (Z68.41) Active confirmed Problem S/P gastric sleeve procedure (Z90.3) Active confirmed Vital Signs Heart Rate 89 /min 03/01/2025 Oximetry 99 % 03/01/2025 Blood pressure diastolic 90 mm Hg 03/01/2025 Height 63.75 in 03/01/2025 Blood pressure systolic 140 mm Hg 03/01/2025 Weight 243.8 lbs 03/01/2025 BMI 42.17 kg/m2 03/01/2025 Encounters Encounter Location Date Provider Diagnosis [facility] [address] [address] 05/13/2024 Lesly Svrcek Morbid obesity E66.0 1 ; BMI 40.0-44.9, adult Z68.41 and S/P gastric sleeve procedure Z90.3 [facility] [address] [address] 04/14/2024 Lesly Svrcek Morbid obesity E66.0 1 ; BMI 40.0-44.9, adult Z68.41 and S/P gastric sleeve procedure Z90.3 [facility] [address] [address] 05/18/2024 Lesly Svrcek Morbid obesity E66.0 1 ; BMI 40.0-44.9, adult Z68.41 and S/P gastric sleeve procedure Z90.3 [facility] [address] [address] 07/20/2024 Lesly Svrcek Morbid obesity E66.0 1 ; BMI 40.0-44.9, adult Z68.41 and S/P gastric sleeve procedure Z90.3 [facility] [address] [address] 08/24/2024 Lesly Svrcek Morbid obesity E66.0 1 ; BMI 40.0-44.9, adult Z68.41 and S/P gastric sleeve procedure Z90.3 [facility] [address] [address] 09/22/2024 Lesly Svrcek Morbid obesity E66.0 1 ; BMI 40.0-44.9, adult Z68.41 ; S/P gastric sleeve procedure Z90.3 and Weight loss counseling, encounter for Z71.3 [facility] [address] 11/17/2024 Lesly Svrcek Morbid obesity E66.0 1 ; BMI 40.0-44.9, adult Z68.41 ; S/P gastric sleeve procedure Z90.3 ; Weight loss counseling, encounter for Z71.3 and Encounter for examination of blood pressure without abnormal findings Z01.30 [facility] [address] 12/28/2024 Lesly Svrcek Morbid obesity E66.0 1 ; BMI 40.0-44.9, adult Z68.41 ; S/P gastric sleeve procedure Z90.3 ; Weight loss counseling, encounter for Z71.3 and Encounter for examination of blood pressure without abnormal findings Z01.30 [facility] [address] 03/01/2025 Lesly Svrcek Morbid obesity E66.0 1 ; BMI 40.0-44.9, adult Z68.41 ; S/P gastric sleeve procedure Z90.3 ; Weight loss counseling, encounter for Z71.3 and Encounter for examination of blood pressure with abnormal findings Z01.31 [facility] [address] 02/25/2025 Lesly Svrcek [facility] [address] 03/01/2025 Lesly Svrcek Morbid obesity E66.0 1 [facility] [address] [address] 04/17/2024 Lesly Svrcek [facility] [address] 04/27/2024 Lesly Svrcek [facility] [address] 04/29/2024 ARSALAN GUSTAFSON [facility] [address] 04/29/2024 ARSALAN GUSTAFSON [facility] [address] [address] 05/28/2024 Lesly Svrcek [facility] [address] [address] [place] [address] 05/31/2024 ARSALAN BORHOT [facility] [address] [place] [address] 06/01/2024 ARSALAN BORHOT [facility] [address] [facility] [address] [place] 06/16/2024 ARSALAN BORHOT [facility] [address] [facility] [address] [place] [address] 06/16/2024 ARSALAN BORHOT [facility] [address] [facility] [address] [place] 06/16/2024 ARSALAN BORHOT [facility] [address] [facility] [address] [place] 06/16/2024 ARSALAN BORHOT [facility] [address] [place] [address] 06/24/2024 ARSALAN BORHOT [facility] [address] [facility] [address] [place] 06/24/2024 ARSALAN BORHOT [facility] [address] [address] [place] [address] 07/26/2024 Lesly Svrcek [facility] [address] [place] [address] 11/04/2024 ARSALAN BORHOT [facility] [address] [facility] [address] [place] [address] 11/05/2024 Lesly Svrcek [facility] [address] [place] [address] 02/14/2025 Lesly Svrcek [facility] [address] [facility] [address] [place] [address] 02/15/2025 ARSALAN BORHOT [facility] [address] [facility] [address] [place] [address] 02/16/2025 Lesly Svrcek [facility] [address] [place] [address] 03/21/2025 Lesly Svrcek [facility] [address] [facility] [address] [place] [address] 04/01/2025 Lesly Armandoponchok [facility] [address] [facility] [address] [place] [address] 04/04/2025 Leslynew Varner Assessments Encounter Date Diagnosis (ICD Code) Assessment Notes Treatment Notes Treatment Clinical Notes Section Notes 04/14/2024 Morbid obesity (ICD-10 - E66.01) #Morbid obesity. 04/14/24: 246 pounds, BMI 42.7. She is doing well with transition to Wegovy 1.7 mg. Will continue current dose. Continue to work on protein intake and regular exercise. Encouraged to add in resistance training 2-3 times a week. Discussed importance of hydration and need for increased water intake. Follow-up in 1 month sooner with any concerns. 03/04/24: 252.9 pounds, BMI 43.9. She has been tolerating compounded semaglutide without side effects. Will submit for Wegovy 1.7 mg at the pharmacy. Hopeful that she will have more effect from therapeutic dose. Exercise has been limited due to hip and knee pain. Continue to work on hydration, protein intake. She will follow-up tomorrow for summa injection in the office while awaiting Wegovy. Follow-up with me in 1 month sooner with any concerns. 02/26/24: Sema 1 mg 02/19/24: Sema 1 mg 02/12/24: Sema 1 mg 02/05/24: Sema 1 mg 01/29/24: Sema 0.5 mg 01/22/24: Sema 0.5 mg 01/15/24: Sema 0.5 mg 12/22/23: Sema 0.5 mg 12/18/23: 250.7, BMI 43.5 Tolerating compounded semaglutide well. Mild itching at injection site. Advised to monitor closely for any worsening symptoms may need to consider discontinuing. Will increase 0.5 mg on next dose next week. Will submit Wegovy to the pharmacy. Discussed PA can take 4 weeks. Discussed importance of hydration, protein intake and regular exercise. Follow-up in 6 weeks sooner with any concerns. 12/16/23: Sema 0.25 mg 12/09/23: Sema 0.25 mg 12/02/23: Sema 0.25 mg 11/25/23: 251.2 pounds, BMI 43.6. Started compounded semaglutide 0.25 mg The patient will continue exercise regimen with an emphasis on improving/increasing steps to at least 6,000-10,000 steps per day. Increasing cardio and strength training exercises as tolerated to improve weight loss and work on building muscle mass. Patient is committed to smarter eating with calorie counting and mindful eating. Limiting processed foods and carbohydrates and increasing leafy greens and lean proteins as well as fruits into their diet. Patient was counseled on the importance of eating local, organic food when possible. Patient has been counseled regarding effects of GLP/GIP-1 agonists and other FDA approved weight loss medications with regards to a multifactorial approach of weight loss as mentioned above and that the medication alone will not be sufficient to meet patients goals. We discussed holistic medication approach with emphasis on lifestyle modification. Discussed obesity as it increases risk of diabetes, cardiovascular disease, and/or organ damage. We spent a lot of time discussing the relationship between food, exercise, sleep, mental health, and obesity. We discussed the importance of having SECAs done every visit and having accountability done during these visits. That the scale is done to monitor not only weight loss but the body composition during medication management and healthy lifestyle changes. We discussed that if the patient is unable at times to financially afford this scale that we would rather waive the fee and have the scale done than have the patient not have the scale obtained. Will follow up with the patient in 4 weeks time to monitor weight loss. Total time was 30 min, greater than 50 % of time was spent on care coordination Case discussed with collaborating physician Jaqui Mcguire who reviewed the assessment and plan. Chart, medications, labs, vital signs reviewed. Dictation was accomplished with the use of [employer] voice recognition software, prone to medical misidentifications and grammatical errors. This is unintentional and the practitioner does try to identify and correct these, but some could still be present. Please do not hesitate to contact practitioner for clarification. All questions answered to patients satisfaction. Patient verbalized understanding of diagnosis and treatments explained. To call sooner prior to next visit it any questions/concerns arise. 04/14/2024 BMI 40.0-44.9, adult (ICD-10 - Z68.41) #Morbid obesity. 04/14/24: 246 pounds, BMI 42.7. She is doing well with transition to Wegovy 1.7 mg. Will continue current dose. Continue to work on protein intake and regular exercise. Encouraged to add in resistance training 2-3 times a week. Discussed importance of hydration and need for increased water intake. Follow-up in 1 month sooner with any concerns. 03/04/24: 252.9 pounds, BMI 43.9. She has been tolerating compounded semaglutide without side effects. Will submit for Wegovy 1.7 mg at the pharmacy. Hopeful that she will have more effect from therapeutic dose. Exercise has been limited due to hip and knee pain. Continue to work on hydration, protein intake. She will follow-up tomorrow for summa injection in the office while awaiting Wegovy. Follow-up with me in 1 month sooner with any concerns. 02/26/24: Sema 1 mg 02/19/24: Sema 1 mg 02/12/24: Sema 1 mg 02/05/24: Sema 1 mg 01/29/24: Sema 0.5 mg 01/22/24: Sema 0.5 mg 01/15/24: Sema 0.5 mg 12/22/23: Sema 0.5 mg 12/18/23: 250.7, BMI 43.5 Tolerating compounded semaglutide well. Mild itching at injection site. Advised to monitor closely for any worsening symptoms may need to consider discontinuing. Will increase 0.5 mg on next dose next week. Will submit Wegovy to the pharmacy. Discussed PA can take 4 weeks. Discussed importance of hydration, protein intake and regular exercise. Follow-up in 6 weeks sooner with any concerns. 12/16/23: Sema 0.25 mg 12/09/23: Sema 0.25 mg 12/02/23: Sema 0.25 mg 11/25/23: 251.2 pounds, BMI 43.6. Started compounded semaglutide 0.25 mg The patient will continue exercise regimen with an emphasis on improving/increasing steps to at least 6,000-10,000 steps per day. Increasing cardio and strength training exercises as tolerated to improve weight loss and work on building muscle mass. Patient is committed to smarter eating with calorie counting and mindful eating. Limiting processed foods and carbohydrates and increasing leafy greens and lean proteins as well as fruits into their diet. Patient was counseled on the importance of eating local, organic food when possible. Patient has been counseled regarding effects of GLP/GIP-1 agonists and other FDA approved weight loss medications with regards to a multifactorial approach of weight loss as mentioned above and that the medication alone will not be sufficient to meet patients goals. We discussed holistic medication approach with emphasis on lifestyle modification. Discussed obesity as it increases risk of diabetes, cardiovascular disease, and/or organ damage. We spent a lot of time discussing the relationship between food, exercise, sleep, mental health, and obesity. We discussed the importance of having SECAs done every visit and having accountability done during these visits. That the scale is done to monitor not only weight loss but the body composition during medication management and healthy lifestyle changes. We discussed that if the patient is unable at times to financially afford this scale that we would rather waive the fee and have the scale done than have the patient not have the scale obtained. Will follow up with the patient in 4 weeks time to monitor weight loss. Total time was 30 min, greater than 50 % of time was spent on care coordination Case discussed with collaborating physician Jaqui Mcguire who reviewed the assessment and plan. Chart, medications, labs, vital signs reviewed. Dictation was accomplished with the use of [employer] voice recognition software, prone to medical misidentifications and grammatical errors. This is unintentional and the practitioner does try to identify and correct these, but some could still be present. Please do not hesitate to contact practitioner for clarification. All questions answered to patients satisfaction. Patient verbalized understanding of diagnosis and treatments explained. To call sooner prior to next visit it any questions/concerns arise. 05/13/2024 Morbid obesity (ICD-10 - E66.01) #Morbid obesity. 05/13/24: 04/14/24: 246 pounds, BMI 42.7. She is doing well with transition to Wegovy 1.7 mg. Will continue current dose. Continue to work on protein intake and regular exercise. Encouraged to add in resistance training 2-3 times a week. Discussed importance of hydration and need for increased water intake. Follow-up in 1 month sooner with any concerns. 03/04/24: 252.9 pounds, BMI 43.9. She has been tolerating compounded semaglutide without side effects. Will submit for Wegovy 1.7 mg at the pharmacy. Hopeful that she will have more effect from therapeutic dose. Exercise has been limited due to hip and knee pain. Continue to work on hydration, protein intake. She will follow-up tomorrow for summa injection in the office while awaiting Wegovy. Follow-up with me in 1 month sooner with any concerns. 02/26/24: Sema 1 mg 02/19/24: Sema 1 mg 02/12/24: Sema 1 mg 02/05/24: Sema 1 mg 01/29/24: Sema 0.5 mg 01/22/24: Sema 0.5 mg 01/15/24: Sema 0.5 mg 12/22/23: Sema 0.5 mg 12/18/23: 250.7, BMI 43.5 Tolerating compounded semaglutide well. Mild itching at injection site. Advised to monitor closely for any worsening symptoms may need to consider discontinuing. Will increase 0.5 mg on next dose next week. Will submit Wegovy to the pharmacy. Discussed PA can take 4 weeks. Discussed importance of hydration, protein intake and regular exercise. Follow-up in 6 weeks sooner with any concerns. 12/16/23: Sema 0.25 mg 12/09/23: Sema 0.25 mg 12/02/23: Sema 0.25 mg 11/25/23: 251.2 pounds, BMI 43.6. Started compounded semaglutide 0.25 mg The patient will continue exercise regimen with an emphasis on improving/increasing steps to at least 6,000-10,000 steps per day. Increasing cardio and strength training exercises as tolerated to improve weight loss and work on building muscle mass. Patient is committed to smarter eating with calorie counting and mindful eating. Limiting processed foods and carbohydrates and increasing leafy greens and lean proteins as well as fruits into their diet. Patient was counseled on the importance of eating local, organic food when possible. Patient has been counseled regarding effects of GLP/GIP-1 agonists and other FDA approved weight loss medications with regards to a multifactorial approach of weight loss as mentioned above and that the medication alone will not be sufficient to meet patients goals. We discussed holistic medication approach with emphasis on lifestyle modification. Discussed obesity as it increases risk of diabetes, cardiovascular disease, and/or organ damage. We spent a lot of time discussing the relationship between food, exercise, sleep, mental health, and obesity. We discussed the importance of having SECAs done every visit and having accountability done during these visits. That the scale is done to monitor not only weight loss but the body composition during medication management and healthy lifestyle changes. We discussed that if the patient is unable at times to financially afford this scale that we would rather waive the fee and have the scale done than have the patient not have the scale obtained. Will follow up with the patient in 4 weeks time to monitor weight loss. Total time was 30 min, greater than 50 % of time was spent on care coordination Case discussed with collaborating physician Jaqui Mcguire who reviewed the assessment and plan. Chart, medications, labs, vital signs reviewed. Dictation was accomplished with the use of [employer] voice recognition software, prone to medical misidentifications and grammatical errors. This is unintentional and the practitioner does try to identify and correct these, but some could still be present. Please do not hesitate to contact practitioner for clarification. All questions answered to patients satisfaction. Patient verbalized understanding of diagnosis and treatments explained. To call sooner prior to next visit it any questions/concerns arise. 05/13/2024 BMI 40.0-44.9, adult (ICD-10 - Z68.41) #Morbid obesity. 05/13/24: 04/14/24: 246 pounds, BMI 42.7. She is doing well with transition to Wegovy 1.7 mg. Will continue current dose. Continue to work on protein intake and regular exercise. Encouraged to add in resistance training 2-3 times a week. Discussed importance of hydration and need for increased water intake. Follow-up in 1 month sooner with any concerns. 03/04/24: 252.9 pounds, BMI 43.9. She has been tolerating compounded semaglutide without side effects. Will submit for Wegovy 1.7 mg at the pharmacy. Hopeful that she will have more effect from therapeutic dose. Exercise has been limited due to hip and knee pain. Continue to work on hydration, protein intake. She will follow-up tomorrow for summa injection in the office while awaiting Wegovy. Follow-up with me in 1 month sooner with any concerns. 02/26/24: Sema 1 mg 02/19/24: Sema 1 mg 02/12/24: Sema 1 mg 02/05/24: Sema 1 mg 01/29/24: Sema 0.5 mg 01/22/24: Sema 0.5 mg 01/15/24: Sema 0.5 mg 12/22/23: Sema 0.5 mg 12/18/23: 250.7, BMI 43.5 Tolerating compounded semaglutide well. Mild itching at injection site. Advised to monitor closely for any worsening symptoms may need to consider discontinuing. Will increase 0.5 mg on next dose next week. Will submit Wegovy to the pharmacy. Discussed PA can take 4 weeks. Discussed importance of hydration, protein intake and regular exercise. Follow-up in 6 weeks sooner with any concerns. 12/16/23: Sema 0.25 mg 12/09/23: Sema 0.25 mg 12/02/23: Sema 0.25 mg 11/25/23: 251.2 pounds, BMI 43.6. Started compounded semaglutide 0.25 mg The patient will continue exercise regimen with an emphasis on improving/increasing steps to at least 6,000-10,000 steps per day. Increasing cardio and strength training exercises as tolerated to improve weight loss and work on building muscle mass. Patient is committed to smarter eating with calorie counting and mindful eating. Limiting processed foods and carbohydrates and increasing leafy greens and lean proteins as well as fruits into their diet. Patient was counseled on the importance of eating local, organic food when possible. Patient has been counseled regarding effects of GLP/GIP-1 agonists and other FDA approved weight loss medications with regards to a multifactorial approach of weight loss as mentioned above and that the medication alone will not be sufficient to meet patients goals. We discussed holistic medication approach with emphasis on lifestyle modification. Discussed obesity as it increases risk of diabetes, cardiovascular disease, and/or organ damage. We spent a lot of time discussing the relationship between food, exercise, sleep, mental health, and obesity. We discussed the importance of having SECAs done every visit and having accountability done during these visits. That the scale is done to monitor not only weight loss but the body composition during medication management and healthy lifestyle changes. We discussed that if the patient is unable at times to financially afford this scale that we would rather waive the fee and have the scale done than have the patient not have the scale obtained. Will follow up with the patient in 4 weeks time to monitor weight loss. Total time was 30 min, greater than 50 % of time was spent on care coordination Case discussed with collaborating physician Jaqui Mcguire who reviewed the assessment and plan. Chart, medications, labs, vital signs reviewed. Dictation was accomplished with the use of [employer] voice recognition software, prone to medical misidentifications and grammatical errors. This is unintentional and the practitioner does try to identify and correct these, but some could still be present. Please do not hesitate to contact practitioner for clarification. All questions answered to patients satisfaction. Patient verbalized understanding of diagnosis and treatments explained. To call sooner prior to next visit it any questions/concerns arise. 05/18/2024 Morbid obesity (ICD-10 - E66.01) #Morbid obesity. 05/18/24: 243.4 pounds, BMI 42.3. She is doing well on Wegovy 1.7 mg however has noticed decreased effectiveness of appetite suppression. Reviewed importance of lifestyle modifications as well including increased exercise with a minimum of 6000 steps a day as well as resistance training 2-3 times a week. Reviewed importance of protein intake, hydration and healthy diet including fruits and vegetables. Will increase dose to 2.4 mg on next refill. Monitor for any side effects. Follow-up in 1 month sooner with any concerns. 04/14/24: 246 pounds, BMI 42.7. She is doing well with transition to Wegovy 1.7 mg. Will continue current dose. Continue to work on protein intake and regular exercise. Encouraged to add in resistance training 2-3 times a week. Discussed importance of hydration and need for increased water intake. Follow-up in 1 month sooner with any concerns. 03/04/24: 252.9 pounds, BMI 43.9. She has been tolerating compounded semaglutide without side effects. Will submit for Wegovy 1.7 mg at the pharmacy. Hopeful that she will have more effect from therapeutic dose. Exercise has been limited due to hip and knee pain. Continue to work on hydration, protein intake. She will follow-up tomorrow for summa injection in the office while awaiting Wegovy. Follow-up with me in 1 month sooner with any concerns. 02/26/24: Sema 1 mg 02/19/24: Sema 1 mg 02/12/24: Sema 1 mg 02/05/24: Sema 1 mg 01/29/24: Sema 0.5 mg 01/22/24: Sema 0.5 mg 01/15/24: Sema 0.5 mg 12/22/23: Sema 0.5 mg 12/18/23: 250.7, BMI 43.5 Tolerating compounded semaglutide well. Mild itching at injection site. Advised to monitor closely for any worsening symptoms may need to consider discontinuing. Will increase 0.5 mg on next dose next week. Will submit Wegovy to the pharmacy. Discussed PA can take 4 weeks. Discussed importance of hydration, protein intake and regular exercise. Follow-up in 6 weeks sooner with any concerns. 12/16/23: Sema 0.25 mg 12/09/23: Sema 0.25 mg 12/02/23: Sema 0.25 mg 11/25/23: 251.2 pounds, BMI 43.6. Started compounded semaglutide 0.25 mg The patient will continue exercise regimen with an emphasis on improving/increasing steps to at least 6,000-10,000 steps per day. Increasing cardio and strength training exercises as tolerated to improve weight loss and work on building muscle mass. Patient is committed to smarter eating with calorie counting and mindful eating. Limiting processed foods and carbohydrates and increasing leafy greens and lean proteins as well as fruits into their diet. Patient was counseled on the importance of eating local, organic food when possible. Patient has been counseled regarding effects of GLP/GIP-1 agonists and other FDA approved weight loss medications with regards to a multifactorial approach of weight loss as mentioned above and that the medication alone will not be sufficient to meet patients goals. We discussed holistic medication approach with emphasis on lifestyle modification. Discussed obesity as it increases risk of diabetes, cardiovascular disease, and/or organ damage. We spent a lot of time discussing the relationship between food, exercise, sleep, mental health, and obesity. We discussed the importance of having SECAs done every visit and having accountability done during these visits. That the scale is done to monitor not only weight loss but the body composition during medication management and healthy lifestyle changes. We discussed that if the patient is unable at times to financially afford this scale that we would rather waive the fee and have the scale done than have the patient not have the scale obtained. Will follow up with the patient in 4 weeks time to monitor weight loss. Total time was 30 min, greater than 50 % of time was spent on care coordination Case discussed with collaborating physician Jaqui Mcguire who reviewed the assessment and plan. Chart, medications, labs, vital signs reviewed. Dictation was accomplished with the use of [employer] voice recognition software, prone to medical misidentifications and grammatical errors. This is unintentional and the practitioner does try to identify and correct these, but some could still be present. Please do not hesitate to contact practitioner for clarification. All questions answered to patients satisfaction. Patient verbalized understanding of diagnosis and treatments explained. To call sooner prior to next visit it any questions/concerns arise. 05/18/2024 BMI 40.0-44.9, adult (ICD-10 - Z68.41) #Morbid obesity. 05/18/24: 243.4 pounds, BMI 42.3. She is doing well on Wegovy 1.7 mg however has noticed decreased effectiveness of appetite suppression. Reviewed importance of lifestyle modifications as well including increased exercise with a minimum of 6000 steps a day as well as resistance training 2-3 times a week. Reviewed importance of protein intake, hydration and healthy diet including fruits and vegetables. Will increase dose to 2.4 mg on next refill. Monitor for any side effects. Follow-up in 1 month sooner with any concerns. 04/14/24: 246 pounds, BMI 42.7. She is doing well with transition to Wegovy 1.7 mg. Will continue current dose. Continue to work on protein intake and regular exercise. Encouraged to add in resistance training 2-3 times a week. Discussed importance of hydration and need for increased water intake. Follow-up in 1 month sooner with any concerns. 03/04/24: 252.9 pounds, BMI 43.9. She has been tolerating compounded semaglutide without side effects. Will submit for Wegovy 1.7 mg at the pharmacy. Hopeful that she will have more effect from therapeutic dose. Exercise has been limited due to hip and knee pain. Continue to work on hydration, protein intake. She will follow-up tomorrow for summa injection in the office while awaiting Wegovy. Follow-up with me in 1 month sooner with any concerns. 02/26/24: Sema 1 mg 02/19/24: Sema 1 mg 02/12/24: Sema 1 mg 02/05/24: Sema 1 mg 01/29/24: Sema 0.5 mg 01/22/24: Sema 0.5 mg 01/15/24: Sema 0.5 mg 12/22/23: Sema 0.5 mg 12/18/23: 250.7, BMI 43.5 Tolerating compounded semaglutide well. Mild itching at injection site. Advised to monitor closely for any worsening symptoms may need to consider discontinuing. Will increase 0.5 mg on next dose next week. Will submit Wegovy to the pharmacy. Discussed PA can take 4 weeks. Discussed importance of hydration, protein intake and regular exercise. Follow-up in 6 weeks sooner with any concerns. 12/16/23: Sema 0.25 mg 12/09/23: Sema 0.25 mg 12/02/23: Sema 0.25 mg 11/25/23: 251.2 pounds, BMI 43.6. Started compounded semaglutide 0.25 mg The patient will continue exercise regimen with an emphasis on improving/increasing steps to at least 6,000-10,000 steps per day. Increasing cardio and strength training exercises as tolerated to improve weight loss and work on building muscle mass. Patient is committed to smarter eating with calorie counting and mindful eating. Limiting processed foods and carbohydrates and increasing leafy greens and lean proteins as well as fruits into their diet. Patient was counseled on the importance of eating local, organic food when possible. Patient has been counseled regarding effects of GLP/GIP-1 agonists and other FDA approved weight loss medications with regards to a multifactorial approach of weight loss as mentioned above and that the medication alone will not be sufficient to meet patients goals. We discussed holistic medication approach with emphasis on lifestyle modification. Discussed obesity as it increases risk of diabetes, cardiovascular disease, and/or organ damage. We spent a lot of time discussing the relationship between food, exercise, sleep, mental health, and obesity. We discussed the importance of having SECAs done every visit and having accountability done during these visits. That the scale is done to monitor not only weight loss but the body composition during medication management and healthy lifestyle changes. We discussed that if the patient is unable at times to financially afford this scale that we would rather waive the fee and have the scale done than have the patient not have the scale obtained. Will follow up with the patient in 4 weeks time to monitor weight loss. Total time was 30 min, greater than 50 % of time was spent on care coordination Case discussed with collaborating physician Jaqui Mcguire who reviewed the assessment and plan. Chart, medications, labs, vital signs reviewed. Dictation was accomplished with the use of [employer] voice recognition software, prone to medical misidentifications and grammatical errors. This is unintentional and the practitioner does try to identify and correct these, but some could still be present. Please do not hesitate to contact practitioner for clarification. All questions answered to patients satisfaction. Patient verbalized understanding of diagnosis and treatments explained. To call sooner prior to next visit it any questions/concerns arise. 07/20/2024 Morbid obesity (ICD-10 - E66.01) #Morbid obesity. 07/20/24: 242.3 pounds, BMI 42.1. She has been on Wegovy 2.4 mg for the last 2 months. She has been tolerating it well however weight has plateaued. Discussed lifestyle modifications at length with patient discussed need to increase protein intake to at least 200 g a day. We also discussed the importance of regular exercise. Advised to increase her walking to at least 6000 steps a day with ultimate goal of 10,000 steps a day as well as resistance training 2-3 times a week. Also discussed importance of hydration and increasing water intake. Will continue current regimen of Wegovy 2.4 mg. She plans to check with her insurance company in regards to options for transition to Zepbound. We also discussed possibility of Contrave as an alternative as well. Follow-up in 4 to 6 weeks sooner with any concerns. 05/18/24: 243.4 pounds, BMI 42.3. She is doing well on Wegovy 1.7 mg however has noticed decreased effectiveness of appetite suppression. Reviewed importance of lifestyle modifications as well including increased exercise with a minimum of 6000 steps a day as well as resistance training 2-3 times a week. Reviewed importance of protein intake, hydration and healthy diet including fruits and vegetables. Will increase dose to 2.4 mg on next refill. Monitor for any side effects. Follow-up in 1 month sooner with any concerns. 04/14/24: 246 pounds, BMI 42.7. She is doing well with transition to Wegovy 1.7 mg. Will continue current dose. Continue to work on protein intake and regular exercise. Encouraged to add in resistance training 2-3 times a week. Discussed importance of hydration and need for increased water intake. Follow-up in 1 month sooner with any concerns. 03/04/24: 252.9 pounds, BMI 43.9. She has been tolerating compounded semaglutide without side effects. Will submit for Wegovy 1.7 mg at the pharmacy. Hopeful that she will have more effect from therapeutic dose. Exercise has been limited due to hip and knee pain. Continue to work on hydration, protein intake. She will follow-up tomorrow for summa injection in the office while awaiting Wegovy. Follow-up with me in 1 month sooner with any concerns. 02/26/24: Sema 1 mg 02/19/24: Sema 1 mg 02/12/24: Sema 1 mg 02/05/24: Sema 1 mg 01/29/24: Sema 0.5 mg 01/22/24: Sema 0.5 mg 01/15/24: Sema 0.5 mg 12/22/23: Sema 0.5 mg 12/18/23: 250.7, BMI 43.5 Tolerating compounded semaglutide well. Mild itching at injection site. Advised to monitor closely for any worsening symptoms may need to consider discontinuing. Will increase 0.5 mg on next dose next week. Will submit Wegovy to the pharmacy. Discussed PA can take 4 weeks. Discussed importance of hydration, protein intake and regular exercise. Follow-up in 6 weeks sooner with any concerns. 12/16/23: Sema 0.25 mg 12/09/23: Sema 0.25 mg 12/02/23: Sema 0.25 mg 11/25/23: 251.2 pounds, BMI 43.6. Started compounded semaglutide 0.25 mg The patient will continue exercise regimen with an emphasis on improving/increasing steps to at least 6,000-10,000 steps per day. Increasing cardio and strength training exercises as tolerated to improve weight loss and work on building muscle mass. Patient is committed to smarter eating with calorie counting and mindful eating. Limiting processed foods and carbohydrates and increasing leafy greens and lean proteins as well as fruits into their diet. Patient was counseled on the importance of eating local, organic food when possible. Patient has been counseled regarding effects of GLP/GIP-1 agonists and other FDA approved weight loss medications with regards to a multifactorial approach of weight loss as mentioned above and that the medication alone will not be sufficient to meet patients goals. We discussed holistic medication approach with emphasis on lifestyle modification. Discussed obesity as it increases risk of diabetes, cardiovascular disease, and/or organ damage. We spent a lot of time discussing the relationship between food, exercise, sleep, mental health, and obesity. We discussed the importance of having SECAs done every visit and having accountability done during these visits. That the scale is done to monitor not only weight loss but the body composition during medication management and healthy lifestyle changes. We discussed that if the patient is unable at times to financially afford this scale that we would rather waive the fee and have the scale done than have the patient not have the scale obtained. Will follow up with the patient in 4 weeks time to monitor weight loss. Total time was 30 min, greater than 50 % of time was spent on care coordination Case discussed with collaborating physician Jaqui Mcguire who reviewed the assessment and plan. Chart, medications, labs, vital signs reviewed. Dictation was accomplished with the use of [employer] voice recognition software, prone to medical misidentifications and grammatical errors. This is unintentional and the practitioner does try to identify and correct these, but some could still be present. Please do not hesitate to contact practitioner for clarification. All questions answered to patients satisfaction. Patient verbalized understanding of diagnosis and treatments explained. To call sooner prior to next visit it any questions/concerns arise. 07/20/2024 BMI 40.0-44.9, adult (ICD-10 - Z68.41) #Morbid obesity. 07/20/24: 242.3 pounds, BMI 42.1. She has been on Wegovy 2.4 mg for the last 2 months. She has been tolerating it well however weight has plateaued. Discussed lifestyle modifications at length with patient discussed need to increase protein intake to at least 200 g a day. We also discussed the importance of regular exercise. Advised to increase her walking to at least 6000 steps a day with ultimate goal of 10,000 steps a day as well as resistance training 2-3 times a week. Also discussed importance of hydration and increasing water intake. Will continue current regimen of Wegovy 2.4 mg. She plans to check with her insurance company in regards to options for transition to Zepbound. We also discussed possibility of Contrave as an alternative as well. Follow-up in 4 to 6 weeks sooner with any concerns. 05/18/24: 243.4 pounds, BMI 42.3. She is doing well on Wegovy 1.7 mg however has noticed decreased effectiveness of appetite suppression. Reviewed importance of lifestyle modifications as well including increased exercise with a minimum of 6000 steps a day as well as resistance training 2-3 times a week. Reviewed importance of protein intake, hydration and healthy diet including fruits and vegetables. Will increase dose to 2.4 mg on next refill. Monitor for any side effects. Follow-up in 1 month sooner with any concerns. 04/14/24: 246 pounds, BMI 42.7. She is doing well with transition to Wegovy 1.7 mg. Will continue current dose. Continue to work on protein intake and regular exercise. Encouraged to add in resistance training 2-3 times a week. Discussed importance of hydration and need for increased water intake. Follow-up in 1 month sooner with any concerns. 03/04/24: 252.9 pounds, BMI 43.9. She has been tolerating compounded semaglutide without side effects. Will submit for Wegovy 1.7 mg at the pharmacy. Hopeful that she will have more effect from therapeutic dose. Exercise has been limited due to hip and knee pain. Continue to work on hydration, protein intake. She will follow-up tomorrow for summa injection in the office while awaiting Wegovy. Follow-up with me in 1 month sooner with any concerns. 02/26/24: Sema 1 mg 02/19/24: Sema 1 mg 02/12/24: Sema 1 mg 02/05/24: Sema 1 mg 01/29/24: Sema 0.5 mg 01/22/24: Sema 0.5 mg 01/15/24: Sema 0.5 mg 12/22/23: Sema 0.5 mg 12/18/23: 250.7, BMI 43.5 Tolerating compounded semaglutide well. Mild itching at injection site. Advised to monitor closely for any worsening symptoms may need to consider discontinuing. Will increase 0.5 mg on next dose next week. Will submit Wegovy to the pharmacy. Discussed PA can take 4 weeks. Discussed importance of hydration, protein intake and regular exercise. Follow-up in 6 weeks sooner with any concerns. 12/16/23: Sema 0.25 mg 12/09/23: Sema 0.25 mg 12/02/23: Sema 0.25 mg 11/25/23: 251.2 pounds, BMI 43.6. Started compounded semaglutide 0.25 mg The patient will continue exercise regimen with an emphasis on improving/increasing steps to at least 6,000-10,000 steps per day. Increasing cardio and strength training exercises as tolerated to improve weight loss and work on building muscle mass. Patient is committed to smarter eating with calorie counting and mindful eating. Limiting processed foods and carbohydrates and increasing leafy greens and lean proteins as well as fruits into their diet. Patient was counseled on the importance of eating local, organic food when possible. Patient has been counseled regarding effects of GLP/GIP-1 agonists and other FDA approved weight loss medications with regards to a multifactorial approach of weight loss as mentioned above and that the medication alone will not be sufficient to meet patients goals. We discussed holistic medication approach with emphasis on lifestyle modification. Discussed obesity as it increases risk of diabetes, cardiovascular disease, and/or organ damage. We spent a lot of time discussing the relationship between food, exercise, sleep, mental health, and obesity. We discussed the importance of having SECAs done every visit and having accountability done during these visits. That the scale is done to monitor not only weight loss but the body composition during medication management and healthy lifestyle changes. We discussed that if the patient is unable at times to financially afford this scale that we would rather waive the fee and have the scale done than have the patient not have the scale obtained. Will follow up with the patient in 4 weeks time to monitor weight loss. Total time was 30 min, greater than 50 % of time was spent on care coordination Case discussed with collaborating physician Jaqui Mcguire who reviewed the assessment and plan. Chart, medications, labs, vital signs reviewed. Dictation was accomplished with the use of [employer] voice recognition software, prone to medical misidentifications and grammatical errors. This is unintentional and the practitioner does try to identify and correct these, but some could still be present. Please do not hesitate to contact practitioner for clarification. All questions answered to patients satisfaction. Patient verbalized understanding of diagnosis and treatments explained. To call sooner prior to next visit it any questions/concerns arise. 08/24/2024 Morbid obesity (ICD-10 - E66.01) #Morbid obesity. 08/24/24: 241.7 pounds, BMI 42.0. She had done well on Wegovy 2.4 mg however plateaued over the last 3 months. Her insurance has approved Zepbound and will start on 2.5 mg dose this week. Reviewed demonstration of pen autoinjector in the office. Reviewed updated Coral and muscle mass has increased in fat mass has decreased. Applauded efforts. Encouraged continued resistance training at home as well as increased protein intake. Follow-up in 1 month sooner with any concerns. The patient will continue exercise regimen with an emphasis on improving/increasing steps to at least 6,000-10,000 steps per day. Increasing cardio and strength training exercises as tolerated to improve weight loss and work on building muscle mass. Patient is committed to smarter eating with calorie counting and mindful eating. Limiting processed foods and carbohydrates and increasing leafy greens and lean proteins as well as fruits into their diet. Patient was counseled on the importance of eating local, organic food when possible. Patient has been counseled regarding effects of GLP/GIP-1 agonists and other FDA approved weight loss medications with regards to a multifactorial approach of weight loss as mentioned above and that the medication alone will not be sufficient to meet patients goals. We discussed holistic medication approach with emphasis on lifestyle modification. Discussed obesity as it increases risk of diabetes, cardiovascular disease, and/or organ damage. We spent a lot of time discussing the relationship between food, exercise, sleep, mental health, and obesity. We discussed the importance of having SECAs done every visit and having accountability done during these visits. That the scale is done to monitor not only weight loss but the body composition during medication management and healthy lifestyle changes. We discussed that if the patient is unable at times to financially afford this scale that we would rather waive the fee and have the scale done than have the patient not have the scale obtained. Will follow up with the patient in 4 weeks time to monitor weight loss. Total time was 30 min, greater than 50 % of time was spent on care coordination Case discussed with collaborating physician Jaqui Mcguire who reviewed the assessment and plan. Chart, medications, labs, vital signs reviewed. Dictation was accomplished with the use of [employer] voice recognition software, prone to medical misidentifications and grammatical errors. This is unintentional and the practitioner does try to identify and correct these, but some could still be present. Please do not hesitate to contact practitioner for clarification. All questions answered to patients satisfaction. Patient verbalized understanding of diagnosis and treatments explained. To call sooner prior to next visit it any questions/concerns arise. 08/24/2024 BMI 40.0-44.9, adult (ICD-10 - Z68.41) #Morbid obesity. 08/24/24: 241.7 pounds, BMI 42.0. She had done well on Wegovy 2.4 mg however plateaued over the last 3 months. Her insurance has approved Zepbound and will start on 2.5 mg dose this week. Reviewed demonstration of pen autoinjector in the office. Reviewed updated Coral and muscle mass has increased in fat mass has decreased. Applauded efforts. Encouraged continued resistance training at home as well as increased protein intake. Follow-up in 1 month sooner with any concerns. The patient will continue exercise regimen with an emphasis on improving/increasing steps to at least 6,000-10,000 steps per day. Increasing cardio and strength training exercises as tolerated to improve weight loss and work on building muscle mass. Patient is committed to smarter eating with calorie counting and mindful eating. Limiting processed foods and carbohydrates and increasing leafy greens and lean proteins as well as fruits into their diet. Patient was counseled on the importance of eating local, organic food when possible. Patient has been counseled regarding effects of GLP/GIP-1 agonists and other FDA approved weight loss medications with regards to a multifactorial approach of weight loss as mentioned above and that the medication alone will not be sufficient to meet patients goals. We discussed holistic medication approach with emphasis on lifestyle modification. Discussed obesity as it increases risk of diabetes, cardiovascular disease, and/or organ damage. We spent a lot of time discussing the relationship between food, exercise, sleep, mental health, and obesity. We discussed the importance of having SECAs done every visit and having accountability done during these visits. That the scale is done to monitor not only weight loss but the body composition during medication management and healthy lifestyle changes. We discussed that if the patient is unable at times to financially afford this scale that we would rather waive the fee and have the scale done than have the patient not have the scale obtained. Will follow up with the patient in 4 weeks time to monitor weight loss. Total time was 30 min, greater than 50 % of time was spent on care coordination Case discussed with collaborating physician Jaqui Mcguire who reviewed the assessment and plan. Chart, medications, labs, vital signs reviewed. Dictation was accomplished with the use of [employer] voice recognition software, prone to medical misidentifications and grammatical errors. This is unintentional and the practitioner does try to identify and correct these, but some could still be present. Please do not hesitate to contact practitioner for clarification. All questions answered to patients satisfaction. Patient verbalized understanding of diagnosis and treatments explained. To call sooner prior to next visit it any questions/concerns arise. 09/22/2024 Morbid obesity (ICD-10 - E66.01) #Morbid obesity. 09/22/24: 243.5 lbs, BMI 42.3. Transition to Zepbound 2.5 mg this past month. She is tolerating it well without side effects. Previously had been on Wegovy 2.4 mg however plateaued. Will plan to increase Zepbound to 5 mg. Monitor for any side effects. Discussed importance of increased protein intake, hydration and consistent exercise including resistance training 3 times a week as well as aiming for minimum of 6000 steps a day. Follow-up with me in 1 month sooner with any concerns. The patient will continue exercise regimen with an emphasis on improving/increasing steps to at least 6,000-10,000 steps per day. Increasing cardio and strength training exercises as tolerated to improve weight loss and work on building muscle mass. Patient is committed to smarter eating with calorie counting and mindful eating. Limiting processed foods and carbohydrates and increasing leafy greens and lean proteins as well as fruits into their diet. Patient was counseled on the importance of eating local, organic food when possible. Patient has been counseled regarding effects of GLP/GIP-1 agonists and other FDA approved weight loss medications with regards to a multifactorial approach of weight loss as mentioned above and that the medication alone will not be sufficient to meet patients goals. We discussed holistic medication approach with emphasis on lifestyle modification. Discussed obesity as it increases risk of diabetes, cardiovascular disease, and/or organ damage. We spent a lot of time discussing the relationship between food, exercise, sleep, mental health, and obesity. We discussed the importance of having SECAs done every visit and having accountability done during these visits. That the scale is done to monitor not only weight loss but the body composition during medication management and healthy lifestyle changes. We discussed that if the patient is unable at times to financially afford this scale that we would rather waive the fee and have the scale done than have the patient not have the scale obtained. Will follow up with the patient in 4 weeks time to monitor weight loss. Total time was 30 min, greater than 50 % of time was spent on care coordination Case discussed with collaborating physician Jaqui Mcguire who reviewed the assessment and plan. Chart, medications, labs, vital signs reviewed. Dictation was accomplished with the use of [employer] voice recognition software, prone to medical misidentifications and grammatical errors. This is unintentional and the practitioner does try to identify and correct these, but some could still be present. Please do not hesitate to contact practitioner for clarification. All questions answered to patients satisfaction. Patient verbalized understanding of diagnosis and treatments explained. To call sooner prior to next visit it any questions/concerns arise. 09/22/2024 BMI 40.0-44.9, adult (ICD-10 - Z68.41) #Morbid obesity. 09/22/24: 243.5 lbs, BMI 42.3. Transition to Zepbound 2.5 mg this past month. She is tolerating it well without side effects. Previously had been on Wegovy 2.4 mg however plateaued. Will plan to increase Zepbound to 5 mg. Monitor for any side effects. Discussed importance of increased protein intake, hydration and consistent exercise including resistance training 3 times a week as well as aiming for minimum of 6000 steps a day. Follow-up with me in 1 month sooner with any concerns. The patient will continue exercise regimen with an emphasis on improving/increasing steps to at least 6,000-10,000 steps per day. Increasing cardio and strength training exercises as tolerated to improve weight loss and work on building muscle mass. Patient is committed to smarter eating with calorie counting and mindful eating. Limiting processed foods and carbohydrates and increasing leafy greens and lean proteins as well as fruits into their diet. Patient was counseled on the importance of eating local, organic food when possible. Patient has been counseled regarding effects of GLP/GIP-1 agonists and other FDA approved weight loss medications with regards to a multifactorial approach of weight loss as mentioned above and that the medication alone will not be sufficient to meet patients goals. We discussed holistic medication approach with emphasis on lifestyle modification. Discussed obesity as it increases risk of diabetes, cardiovascular disease, and/or organ damage. We spent a lot of time discussing the relationship between food, exercise, sleep, mental health, and obesity. We discussed the importance of having SECAs done every visit and having accountability done during these visits. That the scale is done to monitor not only weight loss but the body composition during medication management and healthy lifestyle changes. We discussed that if the patient is unable at times to financially afford this scale that we would rather waive the fee and have the scale done than have the patient not have the scale obtained. Will follow up with the patient in 4 weeks time to monitor weight loss. Total time was 30 min, greater than 50 % of time was spent on care coordination Case discussed with collaborating physician Jaqui Mcguire who reviewed the assessment and plan. Chart, medications, labs, vital signs reviewed. Dictation was accomplished with the use of [employer] voice recognition software, prone to medical misidentifications and grammatical errors. This is unintentional and the practitioner does try to identify and correct these, but some could still be present. Please do not hesitate to contact practitioner for clarification. All questions answered to patients satisfaction. Patient verbalized understanding of diagnosis and treatments explained. To call sooner prior to next visit it any questions/concerns arise. 11/17/2024 Morbid obesity (ICD-10 - E66.01) #Morbid obesity. 11/17/24: 243.3 lbs, BMI 42.3. She has been well on Zepbound 5 mg. Weight is stable. We did discuss importance of lifestyle modifications. Increase protein to 80 to 100 g daily. Increase exercise with a goal of 10,000 steps daily as well as resistance training 3 times a week. Will increase dose to 7.5 mg. Follow-up with me in 1 month sooner with any concerns. The patient will continue exercise regimen with an emphasis on improving/increasing steps to at least 6,000-10,000 steps per day. Increasing cardio and strength training exercises as tolerated to improve weight loss and work on building muscle mass. Patient is committed to smarter eating with calorie counting and mindful eating. Limiting processed foods and carbohydrates and increasing leafy greens and lean proteins as well as fruits into their diet. Patient was counseled on the importance of eating local, organic food when possible. Patient has been counseled regarding effects of GLP/GIP-1 agonists and other FDA approved weight loss medications with regards to a multifactorial approach of weight loss as mentioned above and that the medication alone will not be sufficient to meet patients goals. We discussed holistic medication approach with emphasis on lifestyle modification. Discussed obesity as it increases risk of diabetes, cardiovascular disease, and/or organ damage. We spent a lot of time discussing the relationship between food, exercise, sleep, mental health, and obesity. We discussed the importance of having SECAs done every visit and having accountability done during these visits. That the scale is done to monitor not only weight loss but the body composition during medication management and healthy lifestyle changes. We discussed that if the patient is unable at times to financially afford this scale that we would rather waive the fee and have the scale done than have the patient not have the scale obtained. Will follow up with the patient in 4 weeks time to monitor weight loss. Total time was 30 min, greater than 50 % of time was spent on care coordination Case discussed with collaborating physician Jaqui Mcguire who reviewed the assessment and plan. Chart, medications, labs, vital signs reviewed. Dictation was accomplished with the use of [employer] voice recognition software, prone to medical misidentifications and grammatical errors. This is unintentional and the practitioner does try to identify and correct these, but some could still be present. Please do not hesitate to contact practitioner for clarification. All questions answered to patients satisfaction. Patient verbalized understanding of diagnosis and treatments explained. To call sooner prior to next visit it any questions/concerns arise. 11/17/2024 BMI 40.0-44.9, adult (ICD-10 - Z68.41) #Morbid obesity. 11/17/24: 243.3 lbs, BMI 42.3. She has been well on Zepbound 5 mg. Weight is stable. We did discuss importance of lifestyle modifications. Increase protein to 80 to 100 g daily. Increase exercise with a goal of 10,000 steps daily as well as resistance training 3 times a week. Will increase dose to 7.5 mg. Follow-up with me in 1 month sooner with any concerns. The patient will continue exercise regimen with an emphasis on improving/increasing steps to at least 6,000-10,000 steps per day. Increasing cardio and strength training exercises as tolerated to improve weight loss and work on building muscle mass. Patient is committed to smarter eating with calorie counting and mindful eating. Limiting processed foods and carbohydrates and increasing leafy greens and lean proteins as well as fruits into their diet. Patient was counseled on the importance of eating local, organic food when possible. Patient has been counseled regarding effects of GLP/GIP-1 agonists and other FDA approved weight loss medications with regards to a multifactorial approach of weight loss as mentioned above and that the medication alone will not be sufficient to meet patients goals. We discussed holistic medication approach with emphasis on lifestyle modification. Discussed obesity as it increases risk of diabetes, cardiovascular disease, and/or organ damage. We spent a lot of time discussing the relationship between food, exercise, sleep, mental health, and obesity. We discussed the importance of having SECAs done every visit and having accountability done during these visits. That the scale is done to monitor not only weight loss but the body composition during medication management and healthy lifestyle changes. We discussed that if the patient is unable at times to financially afford this scale that we would rather waive the fee and have the scale done than have the patient not have the scale obtained. Will follow up with the patient in 4 weeks time to monitor weight loss. Total time was 30 min, greater than 50 % of time was spent on care coordination Case discussed with collaborating physician Jaqui Mcguire who reviewed the assessment and plan. Chart, medications, labs, vital signs reviewed. Dictation was accomplished with the use of [employer] voice recognition software, prone to medical misidentifications and grammatical errors. This is unintentional and the practitioner does try to identify and correct these, but some could still be present. Please do not hesitate to contact practitioner for clarification. All questions answered to patients satisfaction. Patient verbalized understanding of diagnosis and treatments explained. To call sooner prior to next visit it any questions/concerns arise. 12/28/2024 Morbid obesity (ICD-10 - E66.01) #Morbid obesity. 12/28/24: 239.4 pounds, BMI 41.6. She is doing well on Zepbound 7.5 mg. Will plan to increase to 10 mg dose on next refill. Continue to work on increased protein intake with a goal of 80 to 100 g daily. Continue to work on increased exercise including resistance training. Follow-up with me in 1 month sooner with any concerns. The patient will continue exercise regimen with an emphasis on improving/increasing steps to at least 6,000-10,000 steps per day. Increasing cardio and strength training exercises as tolerated to improve weight loss and work on building muscle mass. Patient is committed to smarter eating with calorie counting and mindful eating. Limiting processed foods and carbohydrates and increasing leafy greens and lean proteins as well as fruits into their diet. Patient was counseled on the importance of eating local, organic food when possible. Patient has been counseled regarding effects of GLP/GIP-1 agonists and other FDA approved weight loss medications with regards to a multifactorial approach of weight loss as mentioned above and that the medication alone will not be sufficient to meet patients goals. We discussed holistic medication approach with emphasis on lifestyle modification. Discussed obesity as it increases risk of diabetes, cardiovascular disease, and/or organ damage. We spent a lot of time discussing the relationship between food, exercise, sleep, mental health, and obesity. We discussed the importance of having SECAs done every visit and having accountability done during these visits. That the scale is done to monitor not only weight loss but the body composition during medication management and healthy lifestyle changes. We discussed that if the patient is unable at times to financially afford this scale that we would rather waive the fee and have the scale done than have the patient not have the scale obtained. Will follow up with the patient in 4 weeks time to monitor weight loss. Total time was 30 min, greater than 50 % of time was spent on care coordination Case discussed with collaborating physician Jaqui Mcguire who reviewed the assessment and plan. Chart, medications, labs, vital signs reviewed. Dictation was accomplished with the use of [employer] voice recognition software, prone to medical misidentifications and grammatical errors. This is unintentional and the practitioner does try to identify and correct these, but some could still be present. Please do not hesitate to contact practitioner for clarification. All questions answered to patients satisfaction. Patient verbalized understanding of diagnosis and treatments explained. To call sooner prior to next visit it any questions/concerns arise. 12/28/2024 BMI 40.0-44.9, adult (ICD-10 - Z68.41) #Morbid obesity. 12/28/24: 239.4 pounds, BMI 41.6. She is doing well on Zepbound 7.5 mg. Will plan to increase to 10 mg dose on next refill. Continue to work on increased protein intake with a goal of 80 to 100 g daily. Continue to work on increased exercise including resistance training. Follow-up with me in 1 month sooner with any concerns. The patient will continue exercise regimen with an emphasis on improving/increasing steps to at least 6,000-10,000 steps per day. Increasing cardio and strength training exercises as tolerated to improve weight loss and work on building muscle mass. Patient is committed to smarter eating with calorie counting and mindful eating. Limiting processed foods and carbohydrates and increasing leafy greens and lean proteins as well as fruits into their diet. Patient was counseled on the importance of eating local, organic food when possible. Patient has been counseled regarding effects of GLP/GIP-1 agonists and other FDA approved weight loss medications with regards to a multifactorial approach of weight loss as mentioned above and that the medication alone will not be sufficient to meet patients goals. We discussed holistic medication approach with emphasis on lifestyle modification. Discussed obesity as it increases risk of diabetes, cardiovascular disease, and/or organ damage. We spent a lot of time discussing the relationship between food, exercise, sleep, mental health, and obesity. We discussed the importance of having SECAs done every visit and having accountability done during these visits. That the scale is done to monitor not only weight loss but the body composition during medication management and healthy lifestyle changes. We discussed that if the patient is unable at times to financially afford this scale that we would rather waive the fee and have the scale done than have the patient not have the scale obtained. Will follow up with the patient in 4 weeks time to monitor weight loss. Total time was 30 min, greater than 50 % of time was spent on care coordination Case discussed with collaborating physician Jaqui Mcguire who reviewed the assessment and plan. Chart, medications, labs, vital signs reviewed. Dictation was accomplished with the use of [employer] voice recognition software, prone to medical misidentifications and grammatical errors. This is unintentional and the practitioner does try to identify and correct these, but some could still be present. Please do not hesitate to contact practitioner for clarification. All questions answered to patients satisfaction. Patient verbalized understanding of diagnosis and treatments explained. To call sooner prior to next visit it any questions/concerns arise. 03/01/2025 Morbid obesity (ICD-10 - E66.01) #Morbid obesity. 03/01/25: 243.8 pounds, BMI 42.3. She had been doing well on Zepbound 10 mg however has not been unable to pick it up at the pharmacy in the past 3 weeks as she needs updated PA. Will follow-up pending updated PA. Weight is up however fat mass is down and muscle is up. Continue to work on consistent protein intake, hydration and exercise. Follow-up with me again in 1 month sooner with any concerns. Patient is committed to smarter eating with calorie counting and mindful eating. Limiting processed foods and carbohydrates and increasing leafy greens and lean proteins as well as fruits into their diet. Patient was counseled on the importance of eating local, organic food when possible. Patient has been counseled regarding effects of GLP/GIP-1 agonists and other FDA approved weight loss medications with regards to a multifactorial approach of weight loss as mentioned above and that the medication alone will not be sufficient to meet patients goals. We discussed holistic medication approach with emphasis on lifestyle modification. Discussed obesity as it increases risk of diabetes, cardiovascular disease, and/or organ damage. We spent a lot of time discussing the relationship between food, exercise, sleep, mental health, and obesity. We discussed the importance of having SECAs done every visit and having accountability done during these visits. That the scale is done to monitor not only weight loss but the body composition during medication management and healthy lifestyle changes. We discussed that if the patient is unable at times to financially afford this scale that we would rather waive the fee and have the scale done than have the patient not have the scale obtained. Will follow up with the patient in 4 weeks time to monitor weight loss. Total time was 30 min, greater than 50 % of time was spent on care coordination Case discussed with collaborating physician Jaqui Mcguire who reviewed the assessment and plan. Chart, medications, labs, vital signs reviewed. Dictation was accomplished with the use of [employer] voice recognition software, prone to medical misidentifications and grammatical errors. This is unintentional and the practitioner does try to identify and correct these, but some could still be present. Please do not hesitate to contact practitioner for clarification. All questions answered to patients satisfaction. Patient verbalized understanding of diagnosis and treatments explained. To call sooner prior to next visit it any questions/concerns arise. 03/01/2025 BMI 40.0-44.9, adult (ICD-10 - Z68.41) #Morbid obesity. 03/01/25: 243.8 pounds, BMI 42.3. She had been doing well on Zepbound 10 mg however has not been unable to pick it up at the pharmacy in the past 3 weeks as she needs updated PA. Will follow-up pending updated PA. Weight is up however fat mass is down and muscle is up. Continue to work on consistent protein intake, hydration and exercise. Follow-up with me again in 1 month sooner with any concerns. Patient is committed to smarter eating with calorie counting and mindful eating. Limiting processed foods and carbohydrates and increasing leafy greens and lean proteins as well as fruits into their diet. Patient was counseled on the importance of eating local, organic food when possible. Patient has been counseled regarding effects of GLP/GIP-1 agonists and other FDA approved weight loss medications with regards to a multifactorial approach of weight loss as mentioned above and that the medication alone will not be sufficient to meet patients goals. We discussed holistic medication approach with emphasis on lifestyle modification. Discussed obesity as it increases risk of diabetes, cardiovascular disease, and/or organ damage. We spent a lot of time discussing the relationship between food, exercise, sleep, mental health, and obesity. We discussed the importance of having SECAs done every visit and having accountability done during these visits. That the scale is done to monitor not only weight loss but the body composition during medication management and healthy lifestyle changes. We discussed that if the patient is unable at times to financially afford this scale that we would rather waive the fee and have the scale done than have the patient not have the scale obtained. Will follow up with the patient in 4 weeks time to monitor weight loss. Total time was 30 min, greater than 50 % of time was spent on care coordination Case discussed with collaborating physician Jaqui Mcguire who reviewed the assessment and plan. Chart, medications, labs, vital signs reviewed. Dictation was accomplished with the use of [employer] voice recognition software, prone to medical misidentifications and grammatical errors. This is unintentional and the practitioner does try to identify and correct these, but some could still be present. Please do not hesitate to contact practitioner for clarification. All questions answered to patients satisfaction. Patient verbalized understanding of diagnosis and treatments explained. To call sooner prior to next visit it any questions/concerns arise. 03/01/2025 S/P gastric sleeve procedure (ICD-10 - Z90.3) #Morbid obesity. 03/01/25: 243.8 pounds, BMI 42.3. She had been doing well on Zepbound 10 mg however has not been unable to pick it up at the pharmacy in the past 3 weeks as she needs updated PA. Will follow-up pending updated PA. Weight is up however fat mass is down and muscle is up. Continue to work on consistent protein intake, hydration and exercise. Follow-up with me again in 1 month sooner with any concerns. Patient is committed to smarter eating with calorie counting and mindful eating. Limiting processed foods and carbohydrates and increasing leafy greens and lean proteins as well as fruits into their diet. Patient was counseled on the importance of eating local, organic food when possible. Patient has been counseled regarding effects of GLP/GIP-1 agonists and other FDA approved weight loss medications with regards to a multifactorial approach of weight loss as mentioned above and that the medication alone will not be sufficient to meet patients goals. We discussed holistic medication approach with emphasis on lifestyle modification. Discussed obesity as it increases risk of diabetes, cardiovascular disease, and/or organ damage. We spent a lot of time discussing the relationship between food, exercise, sleep, mental health, and obesity. We discussed the importance of having SECAs done every visit and having accountability done during these visits. That the scale is done to monitor not only weight loss but the body composition during medication management and healthy lifestyle changes. We discussed that if the patient is unable at times to financially afford this scale that we would rather waive the fee and have the scale done than have the patient not have the scale obtained. Will follow up with the patient in 4 weeks time to monitor weight loss. Total time was 30 min, greater than 50 % of time was spent on care coordination Case discussed with collaborating physician Jaqui Mcguire who reviewed the assessment and plan. Chart, medications, labs, vital signs reviewed. Dictation was accomplished with the use of [employer] voice recognition software, prone to medical misidentifications and grammatical errors. This is unintentional and the practitioner does try to identify and correct these, but some could still be present. Please do not hesitate to contact practitioner for clarification. All questions answered to patients satisfaction. Patient verbalized understanding of diagnosis and treatments explained. To call sooner prior to next visit it any questions/concerns arise. 12/28/2024 S/P gastric sleeve procedure (ICD-10 - Z90.3) #Morbid obesity. 12/28/24: 239.4 pounds, BMI 41.6. She is doing well on Zepbound 7.5 mg. Will plan to increase to 10 mg dose on next refill. Continue to work on increased protein intake with a goal of 80 to 100 g daily. Continue to work on increased exercise including resistance training. Follow-up with me in 1 month sooner with any concerns. The patient will continue exercise regimen with an emphasis on improving/increasing steps to at least 6,000-10,000 steps per day. Increasing cardio and strength training exercises as tolerated to improve weight loss and work on building muscle mass. Patient is committed to smarter eating with calorie counting and mindful eating. Limiting processed foods and carbohydrates and increasing leafy greens and lean proteins as well as fruits into their diet. Patient was counseled on the importance of eating local, organic food when possible. Patient has been counseled regarding effects of GLP/GIP-1 agonists and other FDA approved weight loss medications with regards to a multifactorial approach of weight loss as mentioned above and that the medication alone will not be sufficient to meet patients goals. We discussed holistic medication approach with emphasis on lifestyle modification. Discussed obesity as it increases risk of diabetes, cardiovascular disease, and/or organ damage. We spent a lot of time discussing the relationship between food, exercise, sleep, mental health, and obesity. We discussed the importance of having SECAs done every visit and having accountability done during these visits. That the scale is done to monitor not only weight loss but the body composition during medication management and healthy lifestyle changes. We discussed that if the patient is unable at times to financially afford this scale that we would rather waive the fee and have the scale done than have the patient not have the scale obtained. Will follow up with the patient in 4 weeks time to monitor weight loss. Total time was 30 min, greater than 50 % of time was spent on care coordination Case discussed with collaborating physician Jaqui Mcguire who reviewed the assessment and plan. Chart, medications, labs, vital signs reviewed. Dictation was accomplished with the use of [employer] voice recognition software, prone to medical misidentifications and grammatical errors. This is unintentional and the practitioner does try to identify and correct these, but some could still be present. Please do not hesitate to contact practitioner for clarification. All questions answered to patients satisfaction. Patient verbalized understanding of diagnosis and treatments explained. To call sooner prior to next visit it any questions/concerns arise. 11/17/2024 S/P gastric sleeve procedure (ICD-10 - Z90.3) #Morbid obesity. 11/17/24: 243.3 lbs, BMI 42.3. She has been well on Zepbound 5 mg. Weight is stable. We did discuss importance of lifestyle modifications. Increase protein to 80 to 100 g daily. Increase exercise with a goal of 10,000 steps daily as well as resistance training 3 times a week. Will increase dose to 7.5 mg. Follow-up with me in 1 month sooner with any concerns. The patient will continue exercise regimen with an emphasis on improving/increasing steps to at least 6,000-10,000 steps per day. Increasing cardio and strength training exercises as tolerated to improve weight loss and work on building muscle mass. Patient is committed to smarter eating with calorie counting and mindful eating. Limiting processed foods and carbohydrates and increasing leafy greens and lean proteins as well as fruits into their diet. Patient was counseled on the importance of eating local, organic food when possible. Patient has been counseled regarding effects of GLP/GIP-1 agonists and other FDA approved weight loss medications with regards to a multifactorial approach of weight loss as mentioned above and that the medication alone will not be sufficient to meet patients goals. We discussed holistic medication approach with emphasis on lifestyle modification. Discussed obesity as it increases risk of diabetes, cardiovascular disease, and/or organ damage. We spent a lot of time discussing the relationship between food, exercise, sleep, mental health, and obesity. We discussed the importance of having SECAs done every visit and having accountability done during these visits. That the scale is done to monitor not only weight loss but the body composition during medication management and healthy lifestyle changes. We discussed that if the patient is unable at times to financially afford this scale that we would rather waive the fee and have the scale done than have the patient not have the scale obtained. Will follow up with the patient in 4 weeks time to monitor weight loss. Total time was 30 min, greater than 50 % of time was spent on care coordination Case discussed with collaborating physician Jaqui Mcguire who reviewed the assessment and plan. Chart, medications, labs, vital signs reviewed. Dictation was accomplished with the use of [employer] voice recognition software, prone to medical misidentifications and grammatical errors. This is unintentional and the practitioner does try to identify and correct these, but some could still be present. Please do not hesitate to contact practitioner for clarification. All questions answered to patients satisfaction. Patient verbalized understanding of diagnosis and treatments explained. To call sooner prior to next visit it any questions/concerns arise. 09/22/2024 S/P gastric sleeve procedure (ICD-10 - Z90.3) #Morbid obesity. 09/22/24: 243.5 lbs, BMI 42.3. Transition to Zepbound 2.5 mg this past month. She is tolerating it well without side effects. Previously had been on Wegovy 2.4 mg however plateaued. Will plan to increase Zepbound to 5 mg. Monitor for any side effects. Discussed importance of increased protein intake, hydration and consistent exercise including resistance training 3 times a week as well as aiming for minimum of 6000 steps a day. Follow-up with me in 1 month sooner with any concerns. The patient will continue exercise regimen with an emphasis on improving/increasing steps to at least 6,000-10,000 steps per day. Increasing cardio and strength training exercises as tolerated to improve weight loss and work on building muscle mass. Patient is committed to smarter eating with calorie counting and mindful eating. Limiting processed foods and carbohydrates and increasing leafy greens and lean proteins as well as fruits into their diet. Patient was counseled on the importance of eating local, organic food when possible. Patient has been counseled regarding effects of GLP/GIP-1 agonists and other FDA approved weight loss medications with regards to a multifactorial approach of weight loss as mentioned above and that the medication alone will not be sufficient to meet patients goals. We discussed holistic medication approach with emphasis on lifestyle modification. Discussed obesity as it increases risk of diabetes, cardiovascular disease, and/or organ damage. We spent a lot of time discussing the relationship between food, exercise, sleep, mental health, and obesity. We discussed the importance of having SECAs done every visit and having accountability done during these visits. That the scale is done to monitor not only weight loss but the body composition during medication management and healthy lifestyle changes. We discussed that if the patient is unable at times to financially afford this scale that we would rather waive the fee and have the scale done than have the patient not have the scale obtained. Will follow up with the patient in 4 weeks time to monitor weight loss. Total time was 30 min, greater than 50 % of time was spent on care coordination Case discussed with collaborating physician Jaqui Mcguire who reviewed the assessment and plan. Chart, medications, labs, vital signs reviewed. Dictation was accomplished with the use of [employer] voice recognition software, prone to medical misidentifications and grammatical errors. This is unintentional and the practitioner does try to identify and correct these, but some could still be present. Please do not hesitate to contact practitioner for clarification. All questions answered to patients satisfaction. Patient verbalized understanding of diagnosis and treatments explained. To call sooner prior to next visit it any questions/concerns arise. 08/24/2024 S/P gastric sleeve procedure (ICD-10 - Z90.3) #Morbid obesity. 08/24/24: 241.7 pounds, BMI 42.0. She had done well on Wegovy 2.4 mg however plateaued over the last 3 months. Her insurance has approved Zepbound and will start on 2.5 mg dose this week. Reviewed demonstration of pen autoinjector in the office. Reviewed updated [place] and muscle mass has increased in fat mass has decreased. Applauded efforts. Encouraged continued resistance training at home as well as increased protein intake. Follow-up in 1 month sooner with any concerns. The patient will continue exercise regimen with an emphasis on improving/increasing steps to at least 6,000-10,000 steps per day. Increasing cardio and strength training exercises as tolerated to improve weight loss and work on building muscle mass. Patient is committed to smarter eating with calorie counting and mindful eating. Limiting processed foods and carbohydrates and increasing leafy greens and lean proteins as well as fruits into their diet. Patient was counseled on the importance of eating local, organic food when possible. Patient has been counseled regarding effects of GLP/GIP-1 agonists and other FDA approved weight loss medications with regards to a multifactorial approach of weight loss as mentioned above and that the medication alone will not be sufficient to meet patients goals. We discussed holistic medication approach with emphasis on lifestyle modification. Discussed obesity as it increases risk of diabetes, cardiovascular disease, and/or organ damage. We spent a lot of time discussing the relationship between food, exercise, sleep, mental health, and obesity. We discussed the importance of having SECAs done every visit and having accountability done during these visits. That the scale is done to monitor not only weight loss but the body composition during medication management and healthy lifestyle changes. We discussed that if the patient is unable at times to financially afford this scale that we would rather waive the fee and have the scale done than have the patient not have the scale obtained. Will follow up with the patient in 4 weeks time to monitor weight loss. Total time was 30 min, greater than 50 % of time was spent on care coordination Case discussed with collaborating physician Jaqui Mcguire who reviewed the assessment and plan. Chart, medications, labs, vital signs reviewed. Dictation was accomplished with the use of [employer] voice recognition software, prone to medical misidentifications and grammatical errors. This is unintentional and the practitioner does try to identify and correct these, but some could still be present. Please do not hesitate to contact practitioner for clarification. All questions answered to patients satisfaction. Patient verbalized understanding of diagnosis and treatments explained. To call sooner prior to next visit it any questions/concerns arise. 07/20/2024 S/P gastric sleeve procedure (ICD-10 - Z90.3) #Morbid obesity. 07/20/24: 242.3 pounds, BMI 42.1. She has been on Wegovy 2.4 mg for the last 2 months. She has been tolerating it well however weight has plateaued. Discussed lifestyle modifications at length with patient discussed need to increase protein intake to at least 200 g a day. We also discussed the importance of regular exercise. Advised to increase her walking to at least 6000 steps a day with ultimate goal of 10,000 steps a day as well as resistance training 2-3 times a week. Also discussed importance of hydration and increasing water intake. Will continue current regimen of Wegovy 2.4 mg. She plans to check with her insurance company in regards to options for transition to Zepbound. We also discussed possibility of Contrave as an alternative as well. Follow-up in 4 to 6 weeks sooner with any concerns. 05/18/24: 243.4 pounds, BMI 42.3. She is doing well on Wegovy 1.7 mg however has noticed decreased effectiveness of appetite suppression. Reviewed importance of lifestyle modifications as well including increased exercise with a minimum of 6000 steps a day as well as resistance training 2-3 times a week. Reviewed importance of protein intake, hydration and healthy diet including fruits and vegetables. Will increase dose to 2.4 mg on next refill. Monitor for any side effects. Follow-up in 1 month sooner with any concerns. 04/14/24: 246 pounds, BMI 42.7. She is doing well with transition to Wegovy 1.7 mg. Will continue current dose. Continue to work on protein intake and regular exercise. Encouraged to add in resistance training 2-3 times a week. Discussed importance of hydration and need for increased water intake. Follow-up in 1 month sooner with any concerns. 03/04/24: 252.9 pounds, BMI 43.9. She has been tolerating compounded semaglutide without side effects. Will submit for Wegovy 1.7 mg at the pharmacy. Hopeful that she will have more effect from therapeutic dose. Exercise has been limited due to hip and knee pain. Continue to work on hydration, protein intake. She will follow-up tomorrow for summa injection in the office while awaiting Wegovy. Follow-up with me in 1 month sooner with any concerns. 02/26/24: Sema 1 mg 02/19/24: Sema 1 mg 02/12/24: Sema 1 mg 02/05/24: Sema 1 mg 01/29/24: Sema 0.5 mg 01/22/24: Sema 0.5 mg 01/15/24: Sema 0.5 mg 12/22/23: Sema 0.5 mg 12/18/23: 250.7, BMI 43.5 Tolerating compounded semaglutide well. Mild itching at injection site. Advised to monitor closely for any worsening symptoms may need to consider discontinuing. Will increase 0.5 mg on next dose next week. Will submit Wegovy to the pharmacy. Discussed PA can take 4 weeks. Discussed importance of hydration, protein intake and regular exercise. Follow-up in 6 weeks sooner with any concerns. 12/16/23: Sema 0.25 mg 12/09/23: Sema 0.25 mg 12/02/23: Sema 0.25 mg 11/25/23: 251.2 pounds, BMI 43.6. Started compounded semaglutide 0.25 mg The patient will continue exercise regimen with an emphasis on improving/increasing steps to at least 6,000-10,000 steps per day. Increasing cardio and strength training exercises as tolerated to improve weight loss and work on building muscle mass. Patient is committed to smarter eating with calorie counting and mindful eating. Limiting processed foods and carbohydrates and increasing leafy greens and lean proteins as well as fruits into their diet. Patient was counseled on the importance of eating local, organic food when possible. Patient has been counseled regarding effects of GLP/GIP-1 agonists and other FDA approved weight loss medications with regards to a multifactorial approach of weight loss as mentioned above and that the medication alone will not be sufficient to meet patients goals. We discussed holistic medication approach with emphasis on lifestyle modification. Discussed obesity as it increases risk of diabetes, cardiovascular disease, and/or organ damage. We spent a lot of time discussing the relationship between food, exercise, sleep, mental health, and obesity. We discussed the importance of having SECAs done every visit and having accountability done during these visits. That the scale is done to monitor not only weight loss but the body composition during medication management and healthy lifestyle changes. We discussed that if the patient is unable at times to financially afford this scale that we would rather waive the fee and have the scale done than have the patient not have the scale obtained. Will follow up with the patient in 4 weeks time to monitor weight loss. Total time was 30 min, greater than 50 % of time was spent on care coordination Case discussed with collaborating physician Jaqui Mcguire who reviewed the assessment and plan. Chart, medications, labs, vital signs reviewed. Dictation was accomplished with the use of [employer] voice recognition software, prone to medical misidentifications and grammatical errors. This is unintentional and the practitioner does try to identify and correct these, but some could still be present. Please do not hesitate to contact practitioner for clarification. All questions answered to patients satisfaction. Patient verbalized understanding of diagnosis and treatments explained. To call sooner prior to next visit it any questions/concerns arise. 05/18/2024 S/P gastric sleeve procedure (ICD-10 - Z90.3) #Morbid obesity. 05/18/24: 243.4 pounds, BMI 42.3. She is doing well on Wegovy 1.7 mg however has noticed decreased effectiveness of appetite suppression. Reviewed importance of lifestyle modifications as well including increased exercise with a minimum of 6000 steps a day as well as resistance training 2-3 times a week. Reviewed importance of protein intake, hydration and healthy diet including fruits and vegetables. Will increase dose to 2.4 mg on next refill. Monitor for any side effects. Follow-up in 1 month sooner with any concerns. 04/14/24: 246 pounds, BMI 42.7. She is doing well with transition to Wegovy 1.7 mg. Will continue current dose. Continue to work on protein intake and regular exercise. Encouraged to add in resistance training 2-3 times a week. Discussed importance of hydration and need for increased water intake. Follow-up in 1 month sooner with any concerns. 03/04/24: 252.9 pounds, BMI 43.9. She has been tolerating compounded semaglutide without side effects. Will submit for Wegovy 1.7 mg at the pharmacy. Hopeful that she will have more effect from therapeutic dose. Exercise has been limited due to hip and knee pain. Continue to work on hydration, protein intake. She will follow-up tomorrow for summa injection in the office while awaiting Wegovy. Follow-up with me in 1 month sooner with any concerns. 02/26/24: Sema 1 mg 02/19/24: Sema 1 mg 02/12/24: Sema 1 mg 02/05/24: Sema 1 mg 01/29/24: Sema 0.5 mg 01/22/24: Sema 0.5 mg 01/15/24: Sema 0.5 mg 12/22/23: Sema 0.5 mg 12/18/23: 250.7, BMI 43.5 Tolerating compounded semaglutide well. Mild itching at injection site. Advised to monitor closely for any worsening symptoms may need to consider discontinuing. Will increase 0.5 mg on next dose next week. Will submit Wegovy to the pharmacy. Discussed PA can take 4 weeks. Discussed importance of hydration, protein intake and regular exercise. Follow-up in 6 weeks sooner with any concerns. 12/16/23: Sema 0.25 mg 12/09/23: Sema 0.25 mg 12/02/23: Sema 0.25 mg 11/25/23: 251.2 pounds, BMI 43.6. Started compounded semaglutide 0.25 mg The patient will continue exercise regimen with an emphasis on improving/increasing steps to at least 6,000-10,000 steps per day. Increasing cardio and strength training exercises as tolerated to improve weight loss and work on building muscle mass. Patient is committed to smarter eating with calorie counting and mindful eating. Limiting processed foods and carbohydrates and increasing leafy greens and lean proteins as well as fruits into their diet. Patient was counseled on the importance of eating local, organic food when possible. Patient has been counseled regarding effects of GLP/GIP-1 agonists and other FDA approved weight loss medications with regards to a multifactorial approach of weight loss as mentioned above and that the medication alone will not be sufficient to meet patients goals. We discussed holistic medication approach with emphasis on lifestyle modification. Discussed obesity as it increases risk of diabetes, cardiovascular disease, and/or organ damage. We spent a lot of time discussing the relationship between food, exercise, sleep, mental health, and obesity. We discussed the importance of having SECAs done every visit and having accountability done during these visits. That the scale is done to monitor not only weight loss but the body composition during medication management and healthy lifestyle changes. We discussed that if the patient is unable at times to financially afford this scale that we would rather waive the fee and have the scale done than have the patient not have the scale obtained. Will follow up with the patient in 4 weeks time to monitor weight loss. Total time was 30 min, greater than 50 % of time was spent on care coordination Case discussed with collaborating physician Jaqui Mcguire who reviewed the assessment and plan. Chart, medications, labs, vital signs reviewed. Dictation was accomplished with the use of [employer] voice recognition software, prone to medical misidentifications and grammatical errors. This is unintentional and the practitioner does try to identify and correct these, but some could still be present. Please do not hesitate to contact practitioner for clarification. All questions answered to patients satisfaction. Patient verbalized understanding of diagnosis and treatments explained. To call sooner prior to next visit it any questions/concerns arise. 05/13/2024 S/P gastric sleeve procedure (ICD-10 - Z90.3) #Morbid obesity. 05/13/24: 04/14/24: 246 pounds, BMI 42.7. She is doing well with transition to Wegovy 1.7 mg. Will continue current dose. Continue to work on protein intake and regular exercise. Encouraged to add in resistance training 2-3 times a week. Discussed importance of hydration and need for increased water intake. Follow-up in 1 month sooner with any concerns. 03/04/24: 252.9 pounds, BMI 43.9. She has been tolerating compounded semaglutide without side effects. Will submit for Wegovy 1.7 mg at the pharmacy. Hopeful that she will have more effect from therapeutic dose. Exercise has been limited due to hip and knee pain. Continue to work on hydration, protein intake. She will follow-up tomorrow for summa injection in the office while awaiting Wegovy. Follow-up with me in 1 month sooner with any concerns. 02/26/24: Sema 1 mg 02/19/24: Sema 1 mg 02/12/24: Sema 1 mg 02/05/24: Sema 1 mg 01/29/24: Sema 0.5 mg 01/22/24: Sema 0.5 mg 01/15/24: Sema 0.5 mg 12/22/23: Sema 0.5 mg 12/18/23: 250.7, BMI 43.5 Tolerating compounded semaglutide well. Mild itching at injection site. Advised to monitor closely for any worsening symptoms may need to consider discontinuing. Will increase 0.5 mg on next dose next week. Will submit Wegovy to the pharmacy. Discussed PA can take 4 weeks. Discussed importance of hydration, protein intake and regular exercise. Follow-up in 6 weeks sooner with any concerns. 12/16/23: Sema 0.25 mg 12/09/23: Sema 0.25 mg 12/02/23: Sema 0.25 mg 11/25/23: 251.2 pounds, BMI 43.6. Started compounded semaglutide 0.25 mg The patient will continue exercise regimen with an emphasis on improving/increasing steps to at least 6,000-10,000 steps per day. Increasing cardio and strength training exercises as tolerated to improve weight loss and work on building muscle mass. Patient is committed to smarter eating with calorie counting and mindful eating. Limiting processed foods and carbohydrates and increasing leafy greens and lean proteins as well as fruits into their diet. Patient was counseled on the importance of eating local, organic food when possible. Patient has been counseled regarding effects of GLP/GIP-1 agonists and other FDA approved weight loss medications with regards to a multifactorial approach of weight loss as mentioned above and that the medication alone will not be sufficient to meet patients goals. We discussed holistic medication approach with emphasis on lifestyle modification. Discussed obesity as it increases risk of diabetes, cardiovascular disease, and/or organ damage. We spent a lot of time discussing the relationship between food, exercise, sleep, mental health, and obesity. We discussed the importance of having SECAs done every visit and having accountability done during these visits. That the scale is done to monitor not only weight loss but the body composition during medication management and healthy lifestyle changes. We discussed that if the patient is unable at times to financially afford this scale that we would rather waive the fee and have the scale done than have the patient not have the scale obtained. Will follow up with the patient in 4 weeks time to monitor weight loss. Total time was 30 min, greater than 50 % of time was spent on care coordination Case discussed with collaborating physician Jaqui Mcguire who reviewed the assessment and plan. Chart, medications, labs, vital signs reviewed. Dictation was accomplished with the use of [employer] voice recognition software, prone to medical misidentifications and grammatical errors. This is unintentional and the practitioner does try to identify and correct these, but some could still be present. Please do not hesitate to contact practitioner for clarification. All questions answered to patients satisfaction. Patient verbalized understanding of diagnosis and treatments explained. To call sooner prior to next visit it any questions/concerns arise. 04/14/2024 S/P gastric sleeve procedure (ICD-10 - Z90.3) #Morbid obesity. 04/14/24: 246 pounds, BMI 42.7. She is doing well with transition to Wegovy 1.7 mg. Will continue current dose. Continue to work on protein intake and regular exercise. Encouraged to add in resistance training 2-3 times a week. Discussed importance of hydration and need for increased water intake. Follow-up in 1 month sooner with any concerns. 03/04/24: 252.9 pounds, BMI 43.9. She has been tolerating compounded semaglutide without side effects. Will submit for Wegovy 1.7 mg at the pharmacy. Hopeful that she will have more effect from therapeutic dose. Exercise has been limited due to hip and knee pain. Continue to work on hydration, protein intake. She will follow-up tomorrow for summa injection in the office while awaiting Wegovy. Follow-up with me in 1 month sooner with any concerns. 02/26/24: Sema 1 mg 02/19/24: Sema 1 mg 02/12/24: Sema 1 mg 02/05/24: Sema 1 mg 01/29/24: Sema 0.5 mg 01/22/24: Sema 0.5 mg 01/15/24: Sema 0.5 mg 12/22/23: Sema 0.5 mg 12/18/23: 250.7, BMI 43.5 Tolerating compounded semaglutide well. Mild itching at injection site. Advised to monitor closely for any worsening symptoms may need to consider discontinuing. Will increase 0.5 mg on next dose next week. Will submit Wegovy to the pharmacy. Discussed PA can take 4 weeks. Discussed importance of hydration, protein intake and regular exercise. Follow-up in 6 weeks sooner with any concerns. 12/16/23: Sema 0.25 mg 12/09/23: Sema 0.25 mg 12/02/23: Sema 0.25 mg 11/25/23: 251.2 pounds, BMI 43.6. Started compounded semaglutide 0.25 mg The patient will continue exercise regimen with an emphasis on improving/increasing steps to at least 6,000-10,000 steps per day. Increasing cardio and strength training exercises as tolerated to improve weight loss and work on building muscle mass. Patient is committed to smarter eating with calorie counting and mindful eating. Limiting processed foods and carbohydrates and increasing leafy greens and lean proteins as well as fruits into their diet. Patient was counseled on the importance of eating local, organic food when possible. Patient has been counseled regarding effects of GLP/GIP-1 agonists and other FDA approved weight loss medications with regards to a multifactorial approach of weight loss as mentioned above and that the medication alone will not be sufficient to meet patients goals. We discussed holistic medication approach with emphasis on lifestyle modification. Discussed obesity as it increases risk of diabetes, cardiovascular disease, and/or organ damage. We spent a lot of time discussing the relationship between food, exercise, sleep, mental health, and obesity. We discussed the importance of having SECAs done every visit and having accountability done during these visits. That the scale is done to monitor not only weight loss but the body composition during medication management and healthy lifestyle changes. We discussed that if the patient is unable at times to financially afford this scale that we would rather waive the fee and have the scale done than have the patient not have the scale obtained. Will follow up with the patient in 4 weeks time to monitor weight loss. Total time was 30 min, greater than 50 % of time was spent on care coordination Case discussed with collaborating physician Jaqui Mcguire who reviewed the assessment and plan. Chart, medications, labs, vital signs reviewed. Dictation was accomplished with the use of [employer] voice recognition software, prone to medical misidentifications and grammatical errors. This is unintentional and the practitioner does try to identify and correct these, but some could still be present. Please do not hesitate to contact practitioner for clarification. All questions answered to patients satisfaction. Patient verbalized understanding of diagnosis and treatments explained. To call sooner prior to next visit it any questions/concerns arise. 03/01/2025 Morbid obesity (ICD-10 - E66.01) Electronic Prior Authorization was requested for Zepbound 10 MG/0.5ML Solution Auto-injector. Provider can order medication once approval received. 09/22/2024 Weight loss counseling, encounter for (ICD-10 - Z71.3) #Morbid obesity. 09/22/24: 243.5 lbs, BMI 42.3. Transition to Zepbound 2.5 mg this past month. She is tolerating it well without side effects. Previously had been on Wegovy 2.4 mg however plateaued. Will plan to increase Zepbound to 5 mg. Monitor for any side effects. Discussed importance of increased protein intake, hydration and consistent exercise including resistance training 3 times a week as well as aiming for minimum of 6000 steps a day. Follow-up with me in 1 month sooner with any concerns. The patient will continue exercise regimen with an emphasis on improving/increasing steps to at least 6,000-10,000 steps per day. Increasing cardio and strength training exercises as tolerated to improve weight loss and work on building muscle mass. Patient is committed to smarter eating with calorie counting and mindful eating. Limiting processed foods and carbohydrates and increasing leafy greens and lean proteins as well as fruits into their diet. Patient was counseled on the importance of eating local, organic food when possible. Patient has been counseled regarding effects of GLP/GIP-1 agonists and other FDA approved weight loss medications with regards to a multifactorial approach of weight loss as mentioned above and that the medication alone will not be sufficient to meet patients goals. We discussed holistic medication approach with emphasis on lifestyle modification. Discussed obesity as it increases risk of diabetes, cardiovascular disease, and/or organ damage. We spent a lot of time discussing the relationship between food, exercise, sleep, mental health, and obesity. We discussed the importance of having SECAs done every visit and having accountability done during these visits. That the scale is done to monitor not only weight loss but the body composition during medication management and healthy lifestyle changes. We discussed that if the patient is unable at times to financially afford this scale that we would rather waive the fee and have the scale done than have the patient not have the scale obtained. Will follow up with the patient in 4 weeks time to monitor weight loss. Total time was 30 min, greater than 50 % of time was spent on care coordination Case discussed with collaborating physician Jaqui Mcguire who reviewed the assessment and plan. Chart, medications, labs, vital signs reviewed. Dictation was accomplished with the use of [employer] voice recognition software, prone to medical misidentifications and grammatical errors. This is unintentional and the practitioner does try to identify and correct these, but some could still be present. Please do not hesitate to contact practitioner for clarification. All questions answered to patients satisfaction. Patient verbalized understanding of diagnosis and treatments explained. To call sooner prior to next visit it any questions/concerns arise. 11/17/2024 Weight loss counseling, encounter for (ICD-10 - Z71.3) #Morbid obesity. 11/17/24: 243.3 lbs, BMI 42.3. She has been well on Zepbound 5 mg. Weight is stable. We did discuss importance of lifestyle modifications. Increase protein to 80 to 100 g daily. Increase exercise with a goal of 10,000 steps daily as well as resistance training 3 times a week. Will increase dose to 7.5 mg. Follow-up with me in 1 month sooner with any concerns. The patient will continue exercise regimen with an emphasis on improving/increasing steps to at least 6,000-10,000 steps per day. Increasing cardio and strength training exercises as tolerated to improve weight loss and work on building muscle mass. Patient is committed to smarter eating with calorie counting and mindful eating. Limiting processed foods and carbohydrates and increasing leafy greens and lean proteins as well as fruits into their diet. Patient was counseled on the importance of eating local, organic food when possible. Patient has been counseled regarding effects of GLP/GIP-1 agonists and other FDA approved weight loss medications with regards to a multifactorial approach of weight loss as mentioned above and that the medication alone will not be sufficient to meet patients goals. We discussed holistic medication approach with emphasis on lifestyle modification. Discussed obesity as it increases risk of diabetes, cardiovascular disease, and/or organ damage. We spent a lot of time discussing the relationship between food, exercise, sleep, mental health, and obesity. We discussed the importance of having SECAs done every visit and having accountability done during these visits. That the scale is done to monitor not only weight loss but the body composition during medication management and healthy lifestyle changes. We discussed that if the patient is unable at times to financially afford this scale that we would rather waive the fee and have the scale done than have the patient not have the scale obtained. Will follow up with the patient in 4 weeks time to monitor weight loss. Total time was 30 min, greater than 50 % of time was spent on care coordination Case discussed with collaborating physician Jaqui Mcguire who reviewed the assessment and plan. Chart, medications, labs, vital signs reviewed. Dictation was accomplished with the use of [employer] voice recognition software, prone to medical misidentifications and grammatical errors. This is unintentional and the practitioner does try to identify and correct these, but some could still be present. Please do not hesitate to contact practitioner for clarification. All questions answered to patients satisfaction. Patient verbalized understanding of diagnosis and treatments explained. To call sooner prior to next visit it any questions/concerns arise. 12/28/2024 Weight loss counseling, encounter for (ICD-10 - Z71.3) #Morbid obesity. 12/28/24: 239.4 pounds, BMI 41.6. She is doing well on Zepbound 7.5 mg. Will plan to increase to 10 mg dose on next refill. Continue to work on increased protein intake with a goal of 80 to 100 g daily. Continue to work on increased exercise including resistance training. Follow-up with me in 1 month sooner with any concerns. The patient will continue exercise regimen with an emphasis on improving/increasing steps to at least 6,000-10,000 steps per day. Increasing cardio and strength training exercises as tolerated to improve weight loss and work on building muscle mass. Patient is committed to smarter eating with calorie counting and mindful eating. Limiting processed foods and carbohydrates and increasing leafy greens and lean proteins as well as fruits into their diet. Patient was counseled on the importance of eating local, organic food when possible. Patient has been counseled regarding effects of GLP/GIP-1 agonists and other FDA approved weight loss medications with regards to a multifactorial approach of weight loss as mentioned above and that the medication alone will not be sufficient to meet patients goals. We discussed holistic medication approach with emphasis on lifestyle modification. Discussed obesity as it increases risk of diabetes, cardiovascular disease, and/or organ damage. We spent a lot of time discussing the relationship between food, exercise, sleep, mental health, and obesity. We discussed the importance of having SECAs done every visit and having accountability done during these visits. That the scale is done to monitor not only weight loss but the body composition during medication management and healthy lifestyle changes. We discussed that if the patient is unable at times to financially afford this scale that we would rather waive the fee and have the scale done than have the patient not have the scale obtained. Will follow up with the patient in 4 weeks time to monitor weight loss. Total time was 30 min, greater than 50 % of time was spent on care coordination Case discussed with collaborating physician Jaqui Mcguire who reviewed the assessment and plan. Chart, medications, labs, vital signs reviewed. Dictation was accomplished with the use of [employer] voice recognition software, prone to medical misidentifications and grammatical errors. This is unintentional and the practitioner does try to identify and correct these, but some could still be present. Please do not hesitate to contact practitioner for clarification. All questions answered to patients satisfaction. Patient verbalized understanding of diagnosis and treatments explained. To call sooner prior to next visit it any questions/concerns arise. 03/01/2025 Weight loss counseling, encounter for (ICD-10 - Z71.3) #Morbid obesity. 03/01/25: 243.8 pounds, BMI 42.3. She had been doing well on Zepbound 10 mg however has not been unable to pick it up at the pharmacy in the past 3 weeks as she needs updated PA. Will follow-up pending updated PA. Weight is up however fat mass is down and muscle is up. Continue to work on consistent protein intake, hydration and exercise. Follow-up with me again in 1 month sooner with any concerns. Patient is committed to smarter eating with calorie counting and mindful eating. Limiting processed foods and carbohydrates and increasing leafy greens and lean proteins as well as fruits into their diet. Patient was counseled on the importance of eating local, organic food when possible. Patient has been counseled regarding effects of GLP/GIP-1 agonists and other FDA approved weight loss medications with regards to a multifactorial approach of weight loss as mentioned above and that the medication alone will not be sufficient to meet patients goals. We discussed holistic medication approach with emphasis on lifestyle modification. Discussed obesity as it increases risk of diabetes, cardiovascular disease, and/or organ damage. We spent a lot of time discussing the relationship between food, exercise, sleep, mental health, and obesity. We discussed the importance of having SECAs done every visit and having accountability done during these visits. That the scale is done to monitor not only weight loss but the body composition during medication management and healthy lifestyle changes. We discussed that if the patient is unable at times to financially afford this scale that we would rather waive the fee and have the scale done than have the patient not have the scale obtained. Will follow up with the patient in 4 weeks time to monitor weight loss. Total time was 30 min, greater than 50 % of time was spent on care coordination Case discussed with collaborating physician Jaqui Mcguire who reviewed the assessment and plan. Chart, medications, labs, vital signs reviewed. Dictation was accomplished with the use of [employer] voice recognition software, prone to medical misidentifications and grammatical errors. This is unintentional and the practitioner does try to identify and correct these, but some could still be present. Please do not hesitate to contact practitioner for clarification. All questions answered to patients satisfaction. Patient verbalized understanding of diagnosis and treatments explained. To call sooner prior to next visit it any questions/concerns arise. 03/01/2025 Encounter for examination of blood pressure with abnormal findings (ICD-10 - Z01.31) #Morbid obesity. 03/01/25: 243.8 pounds, BMI 42.3. She had been doing well on Zepbound 10 mg however has not been unable to pick it up at the pharmacy in the past 3 weeks as she needs updated PA. Will follow-up pending updated PA. Weight is up however fat mass is down and muscle is up. Continue to work on consistent protein intake, hydration and exercise. Follow-up with me again in 1 month sooner with any concerns. Patient is committed to smarter eating with calorie counting and mindful eating. Limiting processed foods and carbohydrates and increasing leafy greens and lean proteins as well as fruits into their diet. Patient was counseled on the importance of eating local, organic food when possible. Patient has been counseled regarding effects of GLP/GIP-1 agonists and other FDA approved weight loss medications with regards to a multifactorial approach of weight loss as mentioned above and that the medication alone will not be sufficient to meet patients goals. We discussed holistic medication approach with emphasis on lifestyle modification. Discussed obesity as it increases risk of diabetes, cardiovascular disease, and/or organ damage. We spent a lot of time discussing the relationship between food, exercise, sleep, mental health, and obesity. We discussed the importance of having SECAs done every visit and having accountability done during these visits. That the scale is done to monitor not only weight loss but the body composition during medication management and healthy lifestyle changes. We discussed that if the patient is unable at times to financially afford this scale that we would rather waive the fee and have the scale done than have the patient not have the scale obtained. Will follow up with the patient in 4 weeks time to monitor weight loss. Total time was 30 min, greater than 50 % of time was spent on care coordination Case discussed with collaborating physician Jaqui Mcguire who reviewed the assessment and plan. Chart, medications, labs, vital signs reviewed. Dictation was accomplished with the use of [employer] voice recognition software, prone to medical misidentifications and grammatical errors. This is unintentional and the practitioner does try to identify and correct these, but some could still be present. Please do not hesitate to contact practitioner for clarification. All questions answered to patients satisfaction. Patient verbalized understanding of diagnosis and treatments explained. To call sooner prior to next visit it any questions/concerns arise. 12/28/2024 Encounter for examination of blood pressure without abnormal findings (ICD-10 - Z01.30) #Morbid obesity. 12/28/24: 239.4 pounds, BMI 41.6. She is doing well on Zepbound 7.5 mg. Will plan to increase to 10 mg dose on next refill. Continue to work on increased protein intake with a goal of 80 to 100 g daily. Continue to work on increased exercise including resistance training. Follow-up with me in 1 month sooner with any concerns. The patient will continue exercise regimen with an emphasis on improving/increasing steps to at least 6,000-10,000 steps per day. Increasing cardio and strength training exercises as tolerated to improve weight loss and work on building muscle mass. Patient is committed to smarter eating with calorie counting and mindful eating. Limiting processed foods and carbohydrates and increasing leafy greens and lean proteins as well as fruits into their diet. Patient was counseled on the importance of eating local, organic food when possible. Patient has been counseled regarding effects of GLP/GIP-1 agonists and other FDA approved weight loss medications with regards to a multifactorial approach of weight loss as mentioned above and that the medication alone will not be sufficient to meet patients goals. We discussed holistic medication approach with emphasis on lifestyle modification. Discussed obesity as it increases risk of diabetes, cardiovascular disease, and/or organ damage. We spent a lot of time discussing the relationship between food, exercise, sleep, mental health, and obesity. We discussed the importance of having SECAs done every visit and having accountability done during these visits. That the scale is done to monitor not only weight loss but the body composition during medication management and healthy lifestyle changes. We discussed that if the patient is unable at times to financially afford this scale that we would rather waive the fee and have the scale done than have the patient not have the scale obtained. Will follow up with the patient in 4 weeks time to monitor weight loss. Total time was 30 min, greater than 50 % of time was spent on care coordination Case discussed with collaborating physician Jaqui Mcguire who reviewed the assessment and plan. Chart, medications, labs, vital signs reviewed. Dictation was accomplished with the use of [employer] voice recognition software, prone to medical misidentifications and grammatical errors. This is unintentional and the practitioner does try to identify and correct these, but some could still be present. Please do not hesitate to contact practitioner for clarification. All questions answered to patients satisfaction. Patient verbalized understanding of diagnosis and treatments explained. To call sooner prior to next visit it any questions/concerns arise. 11/17/2024 Encounter for examination of blood pressure without abnormal findings (ICD-10 - Z01.30) #Morbid obesity. 11/17/24: 243.3 lbs, BMI 42.3. She has been well on Zepbound 5 mg. Weight is stable. We did discuss importance of lifestyle modifications. Increase protein to 80 to 100 g daily. Increase exercise with a goal of 10,000 steps daily as well as resistance training 3 times a week. Will increase dose to 7.5 mg. Follow-up with me in 1 month sooner with any concerns. The patient will continue exercise regimen with an emphasis on improving/increasing steps to at least 6,000-10,000 steps per day. Increasing cardio and strength training exercises as tolerated to improve weight loss and work on building muscle mass. Patient is committed to smarter eating with calorie counting and mindful eating. Limiting processed foods and carbohydrates and increasing leafy greens and lean proteins as well as fruits into their diet. Patient was counseled on the importance of eating local, organic food when possible. Patient has been counseled regarding effects of GLP/GIP-1 agonists and other FDA approved weight loss medications with regards to a multifactorial approach of weight loss as mentioned above and that the medication alone will not be sufficient to meet patients goals. We discussed holistic medication approach with emphasis on lifestyle modification. Discussed obesity as it increases risk of diabetes, cardiovascular disease, and/or organ damage. We spent a lot of time discussing the relationship between food, exercise, sleep, mental health, and obesity. We discussed the importance of having SECAs done every visit and having accountability done during these visits. That the scale is done to monitor not only weight loss but the body composition during medication management and healthy lifestyle changes. We discussed that if the patient is unable at times to financially afford this scale that we would rather waive the fee and have the scale done than have the patient not have the scale obtained. Will follow up with the patient in 4 weeks time to monitor weight loss. Total time was 30 min, greater than 50 % of time was spent on care coordination Case discussed with collaborating physician Jaqui Mcguire who reviewed the assessment and plan. Chart, medications, labs, vital signs reviewed. Dictation was accomplished with the use of [employer] voice recognition software, prone to medical misidentifications and grammatical errors. This is unintentional and the practitioner does try to identify and correct these, but some could still be present. Please do not hesitate to contact practitioner for clarification. All questions answered to patients satisfaction. Patient verbalized understanding of diagnosis and treatments explained. To call sooner prior to next visit it any questions/concerns arise. Plan Of Treatment Pending Test Test Name Order Date INSULIN 11/25/2023 CORTISOL, A.M. 11/25/2023 Insurance Providers Payer Name Payer Address Payer Phone Subscriber Number Group Number Insured Name Patient Relationship to Insured Coverage Start Date Coverage End Date [facility] [address] [place] [address] [id number] ROCCO WALTER Self - patient is the insured Medications Administered Medication Instructions Date of Administration Dosage Notes Semaglutide 11/25/2023 .25 mg Semaglutide 12/02/2023 0.25 mg Semaglutide 12/09/2023 0.25 mg Semaglutide 12/16/2023 0.25 mg Semaglutide 12/22/2023 0.5 Semaglutide 01/15/2024 0.5 mg Semaglutide 01/22/2024 0.5 mg Semaglutide 01/29/2024 0.5 mg Semaglutide 02/05/2024 1 mg Semaglutide 02/12/2024 1 mg Semaglutide 02/19/2024 1 mg Semaglutide 02/26/2024 1 mg Medical (General) History Medical History History ICD Code asthma weight gain hemorrhoids seasonal allergies headaches Surgical History Surgery Date(Month/Year) gastric sleeve 09/03/2022
== END 2025-04-12 16:24 | disposition home or self-care (01) ==
PROVIDERS: PCP Nurse Practitioner Family; Visit Provider Hospitalist
DX: J45.40 Moderate persistent asthma, uncomplicated (principal); G47.33 Obstructive sleep apnea (adult) (pediatric); Z99.89 Dependence on other enabling machines and devices; J30.9 Allergic rhinitis, unspecified; R06.00 Dyspnea, unspecified; M54.6 Pain in thoracic spine; I10 Essential (primary) hypertension
CPT/HCPCS: 99214; G2211